=== PATIENT | female | born 1960 | race Caucasian/White ===

== ENCOUNTER 2016-09-11 13:56 | Observation (INO) | payer MEDICAID ==
[~2016-09-11] VITALS: Ht 172.7 cm; Wt 86.1 kg
[~2016-09-11 13:56] MED LIST: ALPRAZOLAM0.5 M2 PO; ANTIVERT 25MG25 MG PO; ASPIRIN 32325 MG/TA1 PO; ASPIRIN 32325 MG/TAB PO; ASPIRIN E.C. 8181 MG PO; ATIVAN 0.50.5 MG/TAB PO; CELEXA 20MG20 MG/TAB PO; COREG12.5 MG PO; COREG6.25 MG PO; DOXYCYCLINE 10100 MG PO; FLEXERIL 1010 MG/TAB PO; FOLIC ACID1 MG PO; IBUPROFEN MODE200 MG PO; LABETALOL100 MG PO; LASIX20 MG PO; LISINOPRIL10 MG PO; LOPRESSOR 225 MG/TAB PO; LORTAB 5/500 501 TAB PO; NAPROSYN500 MG PO; NASACORT A55 MCG/ACT NS; NATURE'S BLEND F1 MG PO; NITROSTAT0.4 MG SL; NITROSTAT0.4 MG/TAB SL; NORMODYNE100 MG PO; PLAVIX 75MG TAB75 MG PO; PRAVACHOL10 MG PO; PRINIVIL10 MG PO; PROVENTIL0.09 MG/A1 IH; THIAMINE HCL100 MG PO; THIAMINE-100100 MG PO; TIAZAC180 MG PO; TYLENOL 325MG325 MG PO; UNABLE; VENTOLIN0.09 MG IH; WELLBUTRIN SR150 M1 PO; XANAX 0.5MG0.5 MG PO; ZANTAC 150MG T150 MG PO; ZOCOR 10MG10 MG PO
[2016-09-11 15:07] LABS: BASO % 0.5 % (0.0-2.0); EOS # 0.1 (0.0-0.7); EOS % 3.2 % (0-4.0); GRAN # 2.1 (1.4-6.5); GRAN % 47.7 % (42.2-75.2); HEMATOCRIT 39.1 % (37.0-47.0); HEMOGLOBIN 12.9 g/dl (12.5-16.0); LYMPH # 1.8 (1.2-3.4); LYMPH % 40.5 % (20.0-51.0); MEAN CELL VOLUME 94 fl (80.0-100.0); MEAN CORPUSCULAR HEMOGLOBIN 31 pg (27.0-31.0); MEAN CORPUSCULAR HGB CONC 33 g/dl (33.0-37.0); MONO # 0.4 (0.1-0.6); MONO % 8.1 % (1.7-9.3); PLATELET COUNT 247 K/mm3 (130-400); RED BLOOD COUNT 4.17 M/mm3 (4.10-5.30); WHITE BLOOD COUNT 4.4 K/mm3 (4.8-10.8)
[2016-09-11 15:13] LABS: PROTHROMBIN TIME 11.6 SECONDS (9.7-12.8)
[2016-09-11 15:16] LABS: PARTIAL THROMBOPLASTIN TIME 31.2 SECONDS (26.0-37.0)
[2016-09-11 15:19] LABS: ALANINE AMINOTRANSFERASE 35 U/L (9-52); ALKALINE PHOSPHATASE 99 U/L (50-136); ANION GAP 11 mmol/L (7-16); BILIRUBIN,TOTAL 0.5 mg/dL (0.0-1.0); BLOOD UREA NITROGEN 20 mg/dL (7-17); CARBON DIOXIDE 24 mmol/L (22-30); CHLORIDE 104 mmol/L (98-107); GLUCOSE 100 mg/dL (74-106); LIPASE 30 U/L (23-300); POTASSIUM 3.8 mmol/L (3.4-5.0); SODIUM 139 mmol/L (137-145); TOTAL PROTEIN 7.3 gm/dL (6.4-8.2)
[2016-09-11 15:30] LABS: B-TYPE NATRIURETIC PEPTIDE 1050 pg/mL (0-125)
[2016-09-11 15:32] LABS: TROPONIN-I < 0.012 ng/mL (0.000-0.034)
[2016-09-11] MEDS ORDERED: ASPIRIN 32325 MG/TAB PO (15:45)
[2016-09-11] MEDS ORDERED: TIAZAC240 MG PO (15:47)
[2016-09-11] MEDS ORDERED: [UNRECOGNIZED DRUG - OTHER] INH (15:50)
[2016-09-11 17:54] VITALS: BP 147/75; PULSE 68; TEMP 98.4
[2016-09-11 19:18] LABS: PARTIAL THROMBOPLASTIN TIME 32.5 SECONDS (26.0-37.0)
[2016-09-11 19:37] VITALS: BP 119/63; PULSE 71; TEMP 97.3
[2016-09-11 23:53] VITALS: BP 110/59; PULSE 67; TEMP 98.1
[2016-09-12] VITALS (18 sets, daily range): BP systolic 99–141; BP diastolic 50–86; PULSE 56–79; TEMP 97.7–98.8
[2016-09-12 08:18] LABS: BASO % 0.4 % (0.0-2.0); EOS # 0.2 (0.0-0.7); EOS % 3.4 % (0-4.0); GRAN # 2.8 (1.4-6.5); GRAN % 58.1 % (42.2-75.2); LYMPH # 1.5 (1.2-3.4); LYMPH % 30.5 % (20.0-51.0); MEAN CELL VOLUME 96 fl (80.0-100.0); MEAN CORPUSCULAR HEMOGLOBIN 31 pg (27.0-31.0); MEAN CORPUSCULAR HGB CONC 33 g/dl (33.0-37.0); MEAN PLATELET VOLUME 8.8 fl (7.4-10.4); MONO # 0.4 (0.1-0.6); MONO % 7.4 % (1.7-9.3); PLATELET COUNT 244 K/mm3 (130-400); RED BLOOD COUNT 4.19 M/mm3 (4.10-5.30); REDCELL DISTRIBUTION WIDTH-CV 13.1 % (11.5-14.5); WHITE BLOOD COUNT 4.8 K/mm3 (4.8-10.8)
[2016-09-12 08:43] LABS: ANION GAP 8 mmol/L (7-16); BLOOD UREA NITROGEN 15 mg/dL (7-17); CALCIUM 8.9 mg/dL (8.4-10.2); CARBON DIOXIDE 28 mmol/L (22-30); CHLORIDE 103 mmol/L (98-107); CREATININE, serum 0.78 mg/dL (0.52-1.25); GLUCOSE 99 mg/dL (74-106); POTASSIUM 4.2 mmol/L (3.4-5.0); SODIUM 139 mmol/L (137-145)
[2016-09-12 08:56] LABS: TROPONIN-I < 0.012 ng/mL (0.000-0.034)
[2016-09-12 12:47] LABS: INR 1.1 (0.8-3.0); PROTHROMBIN TIME 11.8 SECONDS (9.7-12.8)
[2016-09-12 12:49] LABS: PARTIAL THROMBOPLASTIN TIME 32.1 SECONDS (26.0-37.0)
[2016-09-13 00:02] VITALS: BP 134/61; PULSE 73; TEMP 98.3
[2016-09-13 00:03] VITALS: BP 134/61; PULSE 73; TEMP 98.3
[2016-09-13 04:53] VITALS: BP 125/77; PULSE 77; TEMP 98.2
[2016-09-13 04:55] VITALS: BP 125/77; PULSE 77; TEMP 98.2
[2016-09-13 07:22] LABS: BASO % 0.4 % (0.0-2.0); EOS # 0.2 (0.0-0.7); EOS % 2.9 % (0-4.0); GRAN # 3.1 (1.4-6.5); GRAN % 55.7 % (42.2-75.2); HEMOGLOBIN 12.9 g/dl (12.5-16.0); LYMPH # 1.8 (1.2-3.4); MEAN CELL VOLUME 95 fl (80.0-100.0); MEAN CORPUSCULAR HEMOGLOBIN 31 pg (27.0-31.0); MEAN CORPUSCULAR HGB CONC 32 g/dl (33.0-37.0); MEAN PLATELET VOLUME 8.8 fl (7.4-10.4); MONO # 0.4 (0.1-0.6); MONO % 7.8 % (1.7-9.3); PLATELET COUNT 261 K/mm3 (130-400); REDCELL DISTRIBUTION WIDTH-CV 13.1 % (11.5-14.5); WHITE BLOOD COUNT 5.5 K/mm3 (4.8-10.8)
[2016-09-13 07:29] LABS: CALCIUM 9.1 mg/dL (8.4-10.2); CREATININE, serum 0.76 mg/dL (0.52-1.25); POTASSIUM 4.5 mmol/L (3.4-5.0)
[2016-09-13 07:41] VITALS: BP 121/64; PULSE 78; TEMP 98
[2016-09-13] MEDS ORDERED: PROTONIX 40MG T40 MG PO (09:37)
[2016-09-13 12:01] VITALS: BP 115/70; PULSE 71; TEMP 97.7
[2016-09-13] MEDS ORDERED: VENTOLIN0.09 MG IH ×2 (12:33)
== END 2016-09-13 12:45 | disposition home or self-care (01) ==
LOC: COL.ER 13:56 → MEDICAL 15:50
PROVIDERS: Emergency Medicine; Internal Medicine; Internal Medicine Cardiovascular Disease
DX: I20.0 Unstable angina (principal); I10 Essential (primary) hypertension; K21.9 Gastro-esophageal reflux disease without esophagitis; J44.9 Chronic obstructive pulmonary disease, unspecified; F17.210 Nicotine dependence, cigarettes, uncomplicated
CPT/HCPCS: 99223-AI; 99232-AI; C1769; C1887; C1894; G0378; J1644; J2250; J2270; J2405; J3010; J7030; Q9967

== ENCOUNTER 2017-01-14 07:26 | Emergency (ER) | payer MEDICAID ==
[~2017-01-14] VITALS: Ht 172.7 cm; Wt 72.7 kg
[~2017-01-14 07:26] MED LIST changes: +PROTONIX 40MG T40 MG PO; +TIAZAC240 MG PO; +[UNRECOGNIZED DRUG - OTHER] INH
[2017-01-14 07:30] VITALS: TEMP 99.2
[2017-01-14 08:16] LABS: BASO # 0.1 (0.0-0.2); BASO % 0.3 % (0.0-2.0); EOS # 0.1 (0.0-0.7); EOS % 0.6 % (0-4.0); GRAN # 11.9 (1.4-6.5); HEMATOCRIT 42.8 % (37.0-47.0); HEMOGLOBIN 13.9 g/dl (12.5-16.0); LYMPH # 2.1 (1.2-3.4); LYMPH % 13.7 % (20.0-51.0); MEAN CELL VOLUME 95 fl (80.0-100.0); MEAN CORPUSCULAR HEMOGLOBIN 31 pg (27.0-31.0); MEAN CORPUSCULAR HGB CONC 33 g/dl (33.0-37.0); MEAN PLATELET VOLUME 8.8 fl (7.4-10.4); MONO # 1.2 (0.1-0.6); MONO % 8.1 % (1.7-9.3); PLATELET COUNT 243 K/mm3 (130-400); RED BLOOD COUNT 4.51 M/mm3 (4.10-5.30); WHITE BLOOD COUNT 15.4 K/mm3 (4.8-10.8)
[2017-01-14 08:35] LABS: ADJUSTED CALCIUM 8.8 mg/dL (8.4-10.2); ALANINE AMINOTRANSFERASE 17 U/L (9-52); ALBUMIN 4.2 gm/dL (3.5-5.0); ALKALINE PHOSPHATASE 112 U/L (50-136); ANION GAP 14 mmol/L (7-16); BLOOD UREA NITROGEN 18 mg/dL (7-17); CARBON DIOXIDE 26 mmol/L (22-30); CHLORIDE 96 mmol/L (98-107); CREATININE, serum 1.08 mg/dL (0.52-1.25); GLUCOSE 113 mg/dL (74-106); POTASSIUM 4.2 mmol/L (3.4-5.0); SODIUM 135 mmol/L (137-145); TOTAL PROTEIN 7.8 gm/dL (6.4-8.2)
[2017-01-14 08:41] LABS: B-TYPE NATRIURETIC PEPTIDE 1800 pg/mL (0-125)
[2017-01-14 09:23] LABS: TROPONIN-I < 0.012 ng/mL (0.000-0.034)
[2017-01-14] MEDS ORDERED: CEPHALEXIN500 M1 PO (09:45)
[2017-01-14 10:05] VITALS: BP 106/70; PULSE 86
== END 2017-01-14 10:16 | disposition home or self-care (01) ==
LOC: COL.ER 07:26
PROVIDERS: Nurse Practitioner
DX: J02.0 Streptococcal pharyngitis (principal); F41.9 Anxiety disorder, unspecified; M54.30 Sciatica, unspecified side; I25.2 Old myocardial infarction; J44.9 Chronic obstructive pulmonary disease, unspecified; F17.210 Nicotine dependence, cigarettes, uncomplicated; R53.1 Weakness; R79.89 Other specified abnormal findings of blood chemistry; I25.10 Atherosclerotic heart disease of native coronary artery without angina pectoris; I11.0 Hypertensive heart disease with heart failure; I50.9 Heart failure, unspecified; K21.9 Gastro-esophageal reflux disease without esophagitis; M19.90 Unspecified osteoarthritis, unspecified site
CPT/HCPCS: J1885; J7030

== ENCOUNTER → 2017-05-15 | Outpatient (CLI) | payer MEDICAID ==
[~2017-05-15] MED LIST changes: +CEPHALEXIN500 M1 PO
== END ==
LOC: COL.PUL 13:00
DX: Z01.89 Encounter for other specified special examinations (principal)

== ENCOUNTER → 2017-06-09 | Outpatient (CLI) | payer MEDICAID | LOC: COL.PUL 10:59 | DX: R06.02 Shortness of breath (principal); F17.200 Nicotine dependence, unspecified, uncomplicated | CPT/HCPCS: J7674 ==

== ENCOUNTER 2017-09-04 16:06 | Emergency (ER) | payer MEDICAID ==
[~2017-09-04] VITALS: Ht 172.7 cm; Wt 63.6 kg
[2017-09-04 16:22] VITALS: BP 138/90; TEMP 98.1
[2017-09-04 18:28] LABS: INFLUENZA A NEGATIVE; INFLUENZA B NEGATIVE
[2017-09-04 19:44] LABS: HEMATOCRIT 39.8 % (37.0-47.0); HEMOGLOBIN 12.9 g/dl (12.5-16.0); MEAN CELL VOLUME 93 fl (80.0-100.0); MEAN CORPUSCULAR HEMOGLOBIN 30 pg (27.0-31.0); MEAN CORPUSCULAR HGB CONC 32 g/dl (33.0-37.0); MEAN PLATELET VOLUME 9.4 fl (7.4-10.4); PLATELET COUNT 158 K/mm3 (130-400); RED BLOOD COUNT 4.29 M/mm3 (4.10-5.30); REDCELL DISTRIBUTION WIDTH-CV 13.7 % (11.5-14.5)
[2017-09-04 19:50] LABS: ALBUMIN 4.1 gm/dL (3.5-5.0); BILIRUBIN,TOTAL 0.4 mg/dL (0.0-1.0); CREATININE, serum 0.75 mg/dL (0.52-1.25); POTASSIUM 4.1 mmol/L (3.4-5.0); TOTAL PROTEIN 7.2 gm/dL (6.4-8.2)
[2017-09-04 19:56] LABS: BAND 14 % (0-10); EOSINOPHIL 2 % (0-4); NEUTROPHILS 30 % (42.0-75.2); PLATELET ESTIMATE NORMAL (NORMAL)
[2017-09-04 19:57] LABS: LYMPHOCYTE 49 % (20.0-51.0)
[2017-09-04] MEDS ORDERED: ZOFRAN ODT4 MG PO (20:16)
[2017-09-04 20:34] VITALS: PULSE 76
== END 2017-09-04 20:34 | disposition home or self-care (01) ==
LOC: COL.ER 16:06
PROVIDERS: Emergency Medicine
DX: B34.9 Viral infection, unspecified (principal); I25.2 Old myocardial infarction; I10 Essential (primary) hypertension; J44.9 Chronic obstructive pulmonary disease, unspecified; F41.9 Anxiety disorder, unspecified; F17.210 Nicotine dependence, cigarettes, uncomplicated; Z90.89 Acquired absence of other organs; Z79.82 Long term (current) use of aspirin
CPT/HCPCS: J2405; J7040

== ENCOUNTER → 2017-10-03 | Outpatient (CLI) | payer MEDICAID ==
[~2017-10-03] MED LIST changes: +ZOFRAN ODT4 MG PO
== END ==
LOC: COL.RAD 13:09
DX: M47.816 Spondylosis without myelopathy or radiculopathy, lumbar region (principal); M48.061 Spinal stenosis, lumbar region without neurogenic claudication; M43.16 Spondylolisthesis, lumbar region; M54.42 Lumbago with sciatica, left side

== ENCOUNTER → 2017-10-27 | Outpatient (CLI) | payer MEDICAID | LOC: COL.RAD 16:26 | DX: M43.16 Spondylolisthesis, lumbar region (principal); M54.42 Lumbago with sciatica, left side ==

== ENCOUNTER 2018-05-08 16:15 | Outpatient (RCR) | payer MEDICAID | END 2018-06-03 16:12 | disposition home or self-care (01) | LOC: WSPT 16:15 | DX: M43.16 Spondylolisthesis, lumbar region (principal); M48.062 Spinal stenosis, lumbar region with neurogenic claudication; M71.38 Other bursal cyst, other site ==

== ENCOUNTER 2018-11-04 21:22 | Emergency (ER) | payer MEDICAID ==
[~2018-11-04] VITALS: Ht 172.7 cm; Wt 77.3 kg
[~2018-11-04 21:22] MED LIST changes: -PRINIVIL10 MG PO; +PRINIVIL40 MG PO
[2018-11-04 21:23] VITALS: BP 156/89; TEMP 97
[2018-11-04] MEDS ORDERED: ACULAR 5 ML5 ML OU (22:10)
[2018-11-04 22:30] VITALS: PULSE 87
== END 2018-11-04 22:30 | disposition home or self-care (01) ==
LOC: COL.ER 21:22
DX: S05.01XA Injury of conjunctiva and corneal abrasion without foreign body, right eye, initial encounter (principal); F41.9 Anxiety disorder, unspecified; F32.9 Major depressive disorder, single episode, unspecified; I25.10 Atherosclerotic heart disease of native coronary artery without angina pectoris; I10 Essential (primary) hypertension; F17.210 Nicotine dependence, cigarettes, uncomplicated; Z79.02 Long term (current) use of antithrombotics/antiplatelets; Z79.82 Long term (current) use of aspirin; X58.XXXA Exposure to other specified factors, initial encounter

== ENCOUNTER 2019-02-28 08:17 | Observation (INO) | payer MEDICAID ==
[~2019-02-28] VITALS: Ht 172.7 cm; Wt 94.8 kg
[~2019-02-28 08:17] MED LIST changes: +ACULAR 5 ML5 ML OU
[2019-02-28] MEDS ORDERED: LASIX 20MG TABL20 MG (08:24)
[2019-02-28] MEDS ORDERED: ULTRAM 50MG TAB50 MG PO (08:25)
[2019-02-28 08:41] LABS: BASO % 0.3 % (0.0-2.0); EOS # 0.2 (0.0-0.7); GRAN # 3.4 (1.4-6.5); GRAN % 56.4 % (42.2-75.2); HEMOGLOBIN 12.2 g/dl (12.5-16.0); LYMPH % 32.9 % (20.0-51.0); MEAN CELL VOLUME 97 fl (80.0-100.0); MEAN CORPUSCULAR HEMOGLOBIN 31 pg (27.0-31.0); MEAN CORPUSCULAR HGB CONC 32 g/dl (33.0-37.0); MONO # 0.4 (0.1-0.6); MONO % 7.2 % (1.7-9.3); PLATELET COUNT 207 K/mm3 (130-400); RED BLOOD COUNT 3.91 M/mm3 (4.10-5.30); REDCELL DISTRIBUTION WIDTH-CV 13.8 % (11.5-14.5)
[2019-02-28 09:13] LABS: ALANINE AMINOTRANSFERASE 39 U/L (9-52); ALBUMIN 3.7 gm/dL (3.5-5.0); ALKALINE PHOSPHATASE 103 U/L (50-136); ANION GAP 7 mmol/L (7-16); AST,SGOT 44 U/L (15-37); BILIRUBIN,TOTAL 0.3 mg/dL (0.0-1.0); BLOOD UREA NITROGEN 19 mg/dL (7-17); CALCIUM 8.9 mg/dL (8.4-10.2); CARBON DIOXIDE 29 mmol/L (22-30); CHLORIDE 105 mmol/L (98-107); CREATININE, serum 0.75 (0.52-1.25); GLUCOSE 99 mg/dL (74-106); POTASSIUM 4.4 mmol/L (3.4-5.0); SODIUM 141 mmol/L (137-145); TOTAL PROTEIN 6.6 gm/dL (6.4-8.2)
[2019-02-28 09:30] LABS: TROPONIN-I < 0.012 ng/mL (0.000-0.035)
[2019-02-28 11:08] LABS: COLLECTION METHOD CLEAN CATCH
[2019-02-28 11:22] LABS: PH 7 (5-8); SQUAMOUS EPITHELIAL 0-2 /hpf; URINE APPEARANCE Clear; URINE BACTERIA None Seen /hpf; URINE BILIRUBIN Negative (NEGATIVE); URINE BLOOD Negative (NEGATIVE); URINE COLOR Straw; URINE GLUCOSE Negative (NEGATIVE); URINE KETONE Negative (NEGATIVE); URINE LEUKOCYTE ESTERASE Negative (NEGATIVE); URINE NITRATE Negative (NEGATIVE); URINE PROTEIN(semi-quant) Negative (NEGATIVE); URINE RBC 0-2 /hpf; URINE UROBILINOGEN Negative (NEGATIVE)
--- NOTE | 2019-02-28 12:45 | NUR ---
PT ADMITTED TO MEDICAL FLOOR AT THIS TIME.
[2019-02-28 12:56] VITALS: BP 165/95; PULSE 96; TEMP 98
[2019-02-28] MEDS ORDERED: VENTAVIS IH (13:40)
[2019-02-28] MEDS ORDERED: ANORO IH (13:42)
[2019-02-28] MEDS ORDERED: LIPITOR 40MG TA40 MG PO (13:43)
[2019-02-28 16:04] VITALS: BP 153/85; PULSE 98; TEMP 98.3
--- NOTE | 2019-02-28 18:00 | NUR ---
PT RECIEVED IV LEVAQUIN WITHOUT ISSUE. ADMINISERED XANAX THIS EVENING. PT STATED THAT SHE WAS HAVING SOME CHEST PAIN. VITALS TAKEN, AND TELE CHECKED, BOTH WNL. WANTED TO SEE IF CHEST PAIN WAS ANXIETY INDUCED PRIOR TO GETTING ORDERS FOR OTHER PRNS. NO OTHER COMPLAINTS OR ISSUES VOICED THIS SHIFT.
[2019-02-28 18:37] VITALS: BP 148/79; PULSE 96
[2019-02-28 19:01] VITALS: BP 161/91; PULSE 93; TEMP 98.4
--- NOTE | 2019-02-28 19:32 | NUR ---
REPORT RECEIVED FROM ZOEY BORJA. PT RESTING IN BED AND C/O CONSTANT CHEST PAIN. PT HAS CHRONIC ANXIETY AND SHE'S NOT SURE THIS CHEST PAIN IS FROM ANXIETY. PT JUST TOOK XANAX AND WILL SEE HOW THIS MED HELPS. NO OTHER CONCERN AT THIS TIME. CALL LIGHT IN REACH. TELE SHOWS NO ABNORMAL HEART ACTIVITIES SO FAR.
--- NOTE | 2019-02-28 21:18 | NUR ---
Pt resting in bed comfortably and denied pain. Pt states that her chest pain might have been her anxiety. Cell phone patient account representative provided to pt while pt's hospital stay to charge her phone. Pt voiced gratitude. Call light in reach.
--- NOTE | 2019-02-28 22:01 | NUR ---
PT RESTING IN BED COMFORTABLY AND TALKING ON HER CELL PHONE. NO CONCERN. CALL LIGHT IN REACH.
[2019-02-28 23:06] VITALS: BP 134/68; PULSE 90; TEMP 98.9
--- NOTE | 2019-02-28 23:29 | NUR ---
PT AMBULATED IN A HALLWAY TO GET SOMETHING OUT OF VENDING MACHINE AND BACK TO BED SLEEPING SOUNDLY NOW. CALL LIGHT IN REACH.
--- NOTE | 2019-03-01 00:43 | NUR ---
REPORT GIVEN TO ZOEY CARRION.
--- NOTE | 2019-03-01 01:32 | NUR ---
PT SLEEPING/RESTING WITH RESP EVEN AND UNLABORED. ALSO, NO S/S OF PAIN OR DISCOMFORT NOTED. CALL LIGHT WITHIN REACH.
[2019-03-01 03:01] VITALS: BP 139/58; PULSE 84; TEMP 97.5
--- NOTE | 2019-03-01 07:31 | NUR ---
UNEVENTFUL NIGHT, PT SLEPT WELL AND NO C/O OF PAIN OR DISCOMFORT. RESP EVEN AND UNLABORED. CALL LIGHT WITHIN REACH.
[2019-03-01 07:49] VITALS: BP 146/71; PULSE 88; TEMP 97.5
--- NOTE | 2019-03-01 08:17 | NUR ---
Patient assessment complete and charted. Patient sitting in bed eating breakfast. Pt on room air. RAC INT IV patent. C/O dizziness yesterday when she "walked to vending machine", some nausea and chronic lower back pain. Pt also states she is "having some anxiety". Pt was a little fidgety, asking for Xanax. Denies other needs at this time.
[2019-03-01] MEDS ORDERED: VENTOLIN0.09 MG IH (09:02)
[2019-03-01] MEDS ORDERED: LEVAQUIN 750MG750 M1 PO (09:02)
[2019-03-01 09:53] VITALS: BP 133/67; PULSE 88
[2019-03-01 09:55] VITALS: BP 130/71; PULSE 90
[2019-03-01 09:57] VITALS: BP 150/74; PULSE 98
--- NOTE | 2019-03-01 10:02 | NUR ---
Orthostatic BPs obtained per order. GURVINDER Yip. Patient administered PRN Xanax per OCT. Denies other needs at this time.
--- NOTE | 2019-03-01 10:56 | NUR ---
Initial visit; Patient thanked Labor Economist for looking in on her and letting her know of the availability of spiritual care at our hospital.
[2019-03-01 12:52] VITALS: BP 143/77; PULSE 81; TEMP 98
--- NOTE | 2019-03-01 13:04 | NUR ---
SW attended clincal rounds. Patient lives independently at home. Patient's PCP is Dr Modi and she obtains prescriptions from [facility]. Patient is independent with all ADLs. Patient will discharge later today.
--- NOTE | 2019-03-01 13:06 | NUR ---
Patient awaiting discharge today once Echo and Carotid imaging completed. This nurse contacted Ansley with US at [facility] to make sure she saw the order. Still awaiting tests.
--- NOTE | 2019-03-01 15:00 | NUR ---
Patient discharged. Discharge instructions discussed, all questions answered. Pt verbalizes understanding. No other questions at this time. INT RAC IV discontinued with catheter tip intact, no complications. Pt escorted out via wheelchair by this nurse. Rode home with friend.
== END 2019-03-01 15:00 | disposition home or self-care (01) ==
LOC: COL.ER 08:17 → MEDICAL 10:33
PROVIDERS: Family Medicine; ADMIT Family Medicine
DX: J18.8 Other pneumonia, unspecified organism (principal); F41.9 Anxiety disorder, unspecified; I25.10 Atherosclerotic heart disease of native coronary artery without angina pectoris; I25.2 Old myocardial infarction; Z95.5 Presence of coronary angioplasty implant and graft; J44.9 Chronic obstructive pulmonary disease, unspecified; J96.11 Chronic respiratory failure with hypoxia; R55 Syncope and collapse; I50.22 Chronic systolic (congestive) heart failure; K21.9 Gastro-esophageal reflux disease without esophagitis; I10 Essential (primary) hypertension; F19.11 Other psychoactive substance abuse, in remission; Z79.02 Long term (current) use of antithrombotics/antiplatelets; Z79.82 Long term (current) use of aspirin; Z99.81 Dependence on supplemental oxygen; F17.210 Nicotine dependence, cigarettes, uncomplicated; Z88.0 Allergy status to penicillin; Z88.1 Allergy status to other antibiotic agents; I08.1 Rheumatic disorders of both mitral and tricuspid valves
CPT/HCPCS: 99222-AI; 99233-AI; 99239; A4216; G0378; J0696; J1200; J1940; J1956; J2060; J2930; J7030

== ENCOUNTER 2019-07-20 12:51 | Emergency (ER) | payer MEDICAID ==
[~2019-07-20] VITALS: Ht 172.7 cm; Wt 79.5 kg
[~2019-07-20 12:51] MED LIST changes: +ANORO IH; +LASIX 20MG TABL20 MG; +LEVAQUIN 750MG750 M1 PO; +LIPITOR 40MG TA40 MG PO; +ULTRAM 50MG TAB50 MG PO; +VENTAVIS IH
[2019-07-20 13:06] VITALS: BP 168/98; TEMP 97.7
[2019-07-20] MEDS ORDERED: ILOTYCIN5 MG/GM OP (14:24)
[2019-07-20 14:51] VITALS: PULSE 83
== END 2019-07-20 14:50 | disposition home or self-care (01) ==
LOC: COL.ER 12:51
DX: H57.89 Other specified disorders of eye and adnexa (principal); I25.2 Old myocardial infarction; F41.9 Anxiety disorder, unspecified; F17.210 Nicotine dependence, cigarettes, uncomplicated; Z79.02 Long term (current) use of antithrombotics/antiplatelets; Z79.82 Long term (current) use of aspirin

== ENCOUNTER → 2019-11-18 | Outpatient (CLI) | payer MEDICAID ==
[~2019-11-18] MED LIST changes: +ILOTYCIN5 MG/GM OP
== END ==
LOC: COL.RAD 07:11
DX: G44.51 Hemicrania continua (principal)

== ENCOUNTER 2020-01-07 22:55 | Emergency (ER) | payer MEDICAID ==
[~2020-01-07] VITALS: Ht 172.7 cm; Wt 84.1 kg
[2020-01-07 22:58] VITALS: TEMP 97.6
[2020-01-08 00:15] LABS: BASO % 0.3 % (0.0-2.0); EOS # 0.2 (0.0-0.7); GRAN # 3.6 (1.4-6.5); GRAN % 53.2 % (42.2-75.2); HEMATOCRIT 36.8 % (37.0-47.0); HEMOGLOBIN 11.9 g/dl (12.5-16.0); LYMPH # 2.4 (1.2-3.4); MEAN CELL VOLUME 97 fl (80.0-100.0); MEAN CORPUSCULAR HEMOGLOBIN 31 pg (27.0-31.0); MEAN CORPUSCULAR HGB CONC 32 g/dl (33.0-37.0); MEAN PLATELET VOLUME 8.9 fl (7.4-10.4); MONO # 0.5 (0.1-0.6); MONO % 7.4 % (1.7-9.3); PLATELET COUNT 241 K/mm3 (130-400); RED BLOOD COUNT 3.79 M/mm3 (4.10-5.30); REDCELL DISTRIBUTION WIDTH-CV 13.2 % (11.5-14.5)
[2020-01-08 00:20] LABS: INR 1.1 (0.8-3.0); PROTHROMBIN TIME 12.4 SECONDS (9.7-12.8)
[2020-01-08 00:23] LABS: ALBUMIN 3.9 gm/dL (3.5-5.0); BILIRUBIN,TOTAL 0.3 mg/dL (0.0-1.0); CALCIUM 9.2 mg/dL (8.4-10.2); CREATININE, serum 0.83 (0.52-1.25); POTASSIUM 3.7 mmol/L (3.4-5.0); TOTAL PROTEIN 6.9 gm/dL (6.4-8.2)
[2020-01-08 00:34] LABS: TROPONIN-I 0.02 ng/mL (0.000-0.035)
[2020-01-08 06:00] VITALS: BP 109/56; PULSE 63
== END 2020-01-08 06:19 | disposition home or self-care (01) ==
LOC: COL.ER 22:55
PROVIDERS: Emergency Medicine
DX: R07.89 Other chest pain (principal); K21.9 Gastro-esophageal reflux disease without esophagitis; I25.10 Atherosclerotic heart disease of native coronary artery without angina pectoris; I50.9 Heart failure, unspecified; F17.210 Nicotine dependence, cigarettes, uncomplicated; Z95.5 Presence of coronary angioplasty implant and graft; Z79.02 Long term (current) use of antithrombotics/antiplatelets; Z90.89 Acquired absence of other organs; Z79.82 Long term (current) use of aspirin

== ENCOUNTER 2020-05-20 01:08 | Emergency (ER) | payer MEDICAID ==
[~2020-05-20] VITALS: Ht 172.7 cm; Wt 109.1 kg
[2020-05-20 01:33] LABS: BASO % 0.6 % (0.0-2.0); EOS # 0.2 (0.0-0.7); EOS % 3.5 % (0-4.0); GRAN # 3.4 (1.4-6.5); GRAN % 50.2 % (42.2-75.2); HEMOGLOBIN 11.7 g/dl (12.5-16.0); LYMPH # 2.6 (1.2-3.4); LYMPH % 38.3 % (20.0-51.0); MEAN CELL VOLUME 96 fl (80.0-100.0); MEAN CORPUSCULAR HEMOGLOBIN 31 pg (27.0-31.0); MEAN CORPUSCULAR HGB CONC 32 g/dl (33.0-37.0); MONO # 0.5 (0.1-0.6); MONO % 7.2 % (1.7-9.3); PLATELET COUNT 213 K/mm3 (130-400); RED BLOOD COUNT 3.79 M/mm3 (4.10-5.30); REDCELL DISTRIBUTION WIDTH-CV 13.3 % (11.5-14.5)
[2020-05-20 01:36] LABS: HEMATOCRIT 36.3 % (37.0-47.0)
[2020-05-20 01:44] LABS: INR 1.1 (0.8-3.0); PROTHROMBIN TIME 11.8 SECONDS (9.7-12.8)
[2020-05-20 01:47] LABS: ALBUMIN 4.1 gm/dL (3.5-5.0); BILIRUBIN,TOTAL 0.3 mg/dL (0.0-1.0); CALCIUM 8.8 mg/dL (8.4-10.2); CREATININE, serum 1.03 (0.52-1.25); PARTIAL THROMBOPLASTIN TIME 31.6 SECONDS (26.0-37.0); POTASSIUM 3.7 mmol/L (3.4-5.0); TOTAL PROTEIN 6.8 gm/dL (6.4-8.2)
[2020-05-20 01:50] LABS: D-DIMER < 200.00 ng/mLDDu (200-230)
[2020-05-20 02:00] LABS: TROPONIN-I 0.016 ng/mL (0.000-0.035)
[2020-05-20] MEDS ORDERED: PEPCID 20MG TAB20 MG PO (04:38)
[2020-05-20 04:53] VITALS: BP 122/77; PULSE 78; TEMP 98.1
== END 2020-05-20 05:12 | disposition home or self-care (01) ==
LOC: COL.ER 01:08
PROVIDERS: Emergency Medicine
DX: R06.00 Dyspnea, unspecified (principal); R10.9 Unspecified abdominal pain; I25.10 Atherosclerotic heart disease of native coronary artery without angina pectoris; I50.9 Heart failure, unspecified; K21.9 Gastro-esophageal reflux disease without esophagitis; Z79.02 Long term (current) use of antithrombotics/antiplatelets; Z79.82 Long term (current) use of aspirin
CPT/HCPCS: J2270; J2405

== ENCOUNTER 2020-07-18 11:06 | Emergency (ER) | payer MEDICAID ==
[~2020-07-18] VITALS: Ht 172.7 cm; Wt 84.1 kg
[~2020-07-18 11:06] MED LIST changes: +PEPCID 20MG TAB20 MG PO
[2020-07-18 11:13] VITALS: TEMP 97.7
[2020-07-18 12:49] LABS: BASO % 0.5 % (0.0-2.0); EOS # 0.2 (0.0-0.7); EOS % 3.3 % (0-4.0); GRAN # 3.1 (1.4-6.5); GRAN % 54.4 % (42.2-75.2); HEMATOCRIT 41.3 % (37.0-47.0); HEMOGLOBIN 13.5 g/dl (12.5-16.0); LYMPH % 34.4 % (20.0-51.0); MEAN CELL VOLUME 95 fl (80.0-100.0); MEAN CORPUSCULAR HEMOGLOBIN 31 pg (27.0-31.0); MEAN CORPUSCULAR HGB CONC 33 g/dl (33.0-37.0); MEAN PLATELET VOLUME 9.2 fl (7.4-10.4); MONO # 0.4 (0.1-0.6); MONO % 7.2 % (1.7-9.3); PLATELET COUNT 245 K/mm3 (130-400); RED BLOOD COUNT 4.35 M/mm3 (4.10-5.30); REDCELL DISTRIBUTION WIDTH-CV 13.2 % (11.5-14.5)
[2020-07-18 12:55] LABS: ALBUMIN 4.1 gm/dL (3.5-5.0); BILIRUBIN,TOTAL 0.5 mg/dL (0.0-1.0); CALCIUM 9.3 mg/dL (8.4-10.2); CREATININE, serum 0.83 (0.52-1.25); POTASSIUM 4.4 mmol/L (3.4-5.0); TOTAL PROTEIN 6.9 gm/dL (6.4-8.2)
[2020-07-18 13:06] LABS: TROPONIN-I 0.013 ng/mL (0.000-0.035)
[2020-07-18] MEDS ORDERED: PREDNISONE20 MG PO (15:15)
[2020-07-18] MEDS ORDERED: ZITHROMAX Z PA250 MG PO (15:15)
[2020-07-18 15:29] VITALS: BP 137/81; PULSE 85
[2020-07-20] MEDS ORDERED: PROAIR HFA0.09 MG/AC IH (16:11)
== END 2020-07-18 15:30 | disposition home or self-care (01) ==
LOC: COL.ER 11:06
PROVIDERS: Family Medicine
DX: J20.9 Acute bronchitis, unspecified (principal); I25.10 Atherosclerotic heart disease of native coronary artery without angina pectoris; I25.2 Old myocardial infarction; F17.200 Nicotine dependence, unspecified, uncomplicated; Z98.61 Coronary angioplasty status; Z88.0 Allergy status to penicillin; Z88.8 Allergy status to other drugs, medicaments and biological substances; Z79.02 Long term (current) use of antithrombotics/antiplatelets; Z79.82 Long term (current) use of aspirin
CPT/HCPCS: J2930

== ENCOUNTER 2020-08-04 23:06 | Emergency (ER) | payer MEDICAID ==
[~2020-08-04] VITALS: Ht 172.7 cm; Wt 81.8 kg
[~2020-08-04 23:06] MED LIST changes: +PREDNISONE20 MG PO; +PROAIR HFA0.09 MG/AC IH; +ZITHROMAX Z PA250 MG PO
[2020-08-04 23:25] VITALS: BP 157/107; TEMP 98.3
[2020-08-05 00:30] LABS: BASO % 0.5 % (0.0-2.0); EOS # 0.2 (0.0-0.7); EOS % 2.3 % (0-4.0); GRAN # 4.6 (1.4-6.5); HEMOGLOBIN 11.4 g/dl (12.5-16.0); LYMPH # 2.3 (1.2-3.4); LYMPH % 28.8 % (20.0-51.0); MEAN CELL VOLUME 97 fl (80.0-100.0); MEAN CORPUSCULAR HEMOGLOBIN 31 pg (27.0-31.0); MEAN CORPUSCULAR HGB CONC 32 g/dl (33.0-37.0); MEAN PLATELET VOLUME 8.7 fl (7.4-10.4); MONO # 0.7 (0.1-0.6); MONO % 8.4 % (1.7-9.3); PLATELET COUNT 210 K/mm3 (130-400); RED BLOOD COUNT 3.68 M/mm3 (4.10-5.30); REDCELL DISTRIBUTION WIDTH-CV 13.8 % (11.5-14.5)
[2020-08-05 00:33] LABS: HEMATOCRIT 35.8 % (37.0-47.0)
[2020-08-05 00:45] LABS: ALBUMIN 3.6 gm/dL (3.5-5.0); BILIRUBIN,TOTAL 0.2 mg/dL (0.0-1.0); C-REACTIVE PROTEIN 1.6 mg/dL (0.0-0.9); CALCIUM 8.9 mg/dL (8.4-10.2); CREATININE, serum 0.81 (0.52-1.25); POTASSIUM 3.9 mmol/L (3.4-5.0); TOTAL PROTEIN 6.2 gm/dL (6.4-8.2)
[2020-08-05] MEDS ORDERED: PROTONIX 40MG T40 MG PO (01:48)
[2020-08-05] MEDS ORDERED: CARAFATE 1GM1 G PO (01:48)
[2020-08-05 02:00] VITALS: PULSE 94
== END 2020-08-05 02:03 | disposition home or self-care (01) ==
LOC: COL.ER 23:06
PROVIDERS: Emergency Medicine
DX: K29.70 Gastritis, unspecified, without bleeding (principal); J44.9 Chronic obstructive pulmonary disease, unspecified; I25.10 Atherosclerotic heart disease of native coronary artery without angina pectoris; I25.2 Old myocardial infarction; K21.9 Gastro-esophageal reflux disease without esophagitis; F41.9 Anxiety disorder, unspecified; F17.210 Nicotine dependence, cigarettes, uncomplicated; Z86.19 Personal history of other infectious and parasitic diseases; Z88.0 Allergy status to penicillin; Z88.8 Allergy status to other drugs, medicaments and biological substances; Z79.52 Long term (current) use of systemic steroids; Z79.82 Long term (current) use of aspirin
CPT/HCPCS: C9113; J2270; J2405

== ENCOUNTER → 2020-09-06 | Outpatient (CLI) | payer MEDICAID ==
[~2020-09-06] MED LIST changes: +CARAFATE 1GM1 G PO
[2020-09-06 12:28] LABS: ALBUMIN 4.4 gm/dL (3.5-5.0); BILIRUBIN,TOTAL 0.6 mg/dL (0.0-1.0); CALCIUM 9.6 mg/dL (8.4-10.2); CREATININE, serum 1.09 (0.52-1.25); POTASSIUM 4.3 mmol/L (3.4-5.0); TOTAL PROTEIN 7.5 gm/dL (6.4-8.2)
== END ==
LOC: COL.RAD 11:53
PROVIDERS: Physician Assistant
DX: I34.0 Nonrheumatic mitral (valve) insufficiency (principal); I51.7 Cardiomegaly

== ENCOUNTER 2020-10-18 06:29 | Inpatient (IN) | payer MEDICAID ==
[~2020-10-18] VITALS: Ht 167.6 cm; Wt 90.9 kg
[~2020-10-18 06:29] MED LIST changes: -LASIX 20MG TABL20 MG; +LASIX 20MG TABL20 MG PO
[2020-10-18 07:17] LABS: ARTERIAL BLD GAS O2 SATURATION 91.2 % (92-100); ARTERIAL BLD GAS TCO2 CT 23.3; ARTERIAL BLOOD GAS BASE EXCESS -4.6 (-2-2); ARTERIAL BLOOD GAS HCO3 21.9 meq/L (22-26); ARTERIAL BLOOD GAS PCO2 46.1 mmHg (35-45); ARTERIAL BLOOD GAS PO2 66.5 mmHg (80-100)
[2020-10-18 07:39] LABS: ALBUMIN 4.1 gm/dL (3.5-5.0); BILIRUBIN,TOTAL 0.3 mg/dL (0.0-1.0); C-REACTIVE PROTEIN 0.6 mg/dL (0.0-0.9); CALCIUM 8.6 mg/dL (8.4-10.2); CREATININE, serum 1.05 (0.52-1.25); POTASSIUM 3.7 mmol/L (3.4-5.0); TOTAL PROTEIN 6.9 gm/dL (6.4-8.2)
[2020-10-18 07:43] LABS: PARTIAL THROMBOPLASTIN TIME 26.5 SECONDS (26.0-37.0)
[2020-10-18 07:46] LABS: BASO % 0.4 % (0.0-2.0); EOS # 0.2 (0.0-0.7); EOS % 2.2 % (0-4.0); GRAN # 6.8 (1.4-6.5); GRAN % 74.5 % (42.2-75.2); HEMATOCRIT 42.2 % (37.0-47.0); HEMOGLOBIN 13.1 g/dl (12.5-16.0); LYMPH # 1.7 (1.2-3.4); LYMPH % 18.9 % (20.0-51.0); MEAN CELL VOLUME 100 fl (80.0-100.0); MEAN CORPUSCULAR HEMOGLOBIN 31 pg (27.0-31.0); MEAN CORPUSCULAR HGB CONC 31 g/dl (33.0-37.0); MEAN PLATELET VOLUME 9.1 fl (7.4-10.4); MONO # 0.3 (0.1-0.6); MONO % 3.6 % (1.7-9.3); PLATELET COUNT 262 K/mm3 (130-400); RED BLOOD COUNT 4.22 M/mm3 (4.10-5.30); REDCELL DISTRIBUTION WIDTH-CV 13.3 % (11.5-14.5)
[2020-10-18 07:48] LABS: TROPONIN-I 0.028 ng/mL (0.000-0.035)
[2020-10-18 08:05] LABS: MUCOUS Present /lpf; PH 7 (5-8); SQUAMOUS EPITHELIAL 0-2 /hpf; URINE APPEARANCE Clear; URINE BACTERIA None Seen /hpf; URINE BILIRUBIN Negative (NEGATIVE); URINE BLOOD Negative (NEGATIVE); URINE COLOR Yellow; URINE GLUCOSE Negative (NEGATIVE); URINE KETONE Negative (NEGATIVE); URINE LEUKOCYTE ESTERASE Negative (NEGATIVE); URINE NITRATE Negative (NEGATIVE); URINE PROTEIN(semi-quant) Negative (NEGATIVE); URINE RBC None Seen /hpf; URINE UROBILINOGEN Negative (NEGATIVE); URINE WBC 0-2 /hpf
[2020-10-18 08:16] LABS: TRICYCLIC ANTIDEPRESS URINE NEGATIVE
[2020-10-18 08:41] LABS: ERYTHROCYTE SEDIMENTATION RATE 7 mm/hr (0-30)
[2020-10-18 09:01] LABS: COLLECTION METHOD CATHETER
[2020-10-18] MEDS ORDERED: TRELEGY ELLIPT1 EACH IH (11:52)
[2020-10-18] MEDS ORDERED: ASPIRIN 81M81 MG/TA2 PO (11:53)
[2020-10-18] MEDS ORDERED: FLONASE NASAL S16 GM NS (11:54)
[2020-10-18] MEDS ORDERED: CARDIZEM120 MG PO (12:02)
[2020-10-18] MEDS ORDERED: ULTRAM 50MG TAB50 MG PO (12:03)
--- NOTE | 2020-10-18 12:09 | NUR ---
Pt admitted to medical unit rm [id number] from ED via cart, ambulates from cart to bed with steady gait. Pt reports headache 7 out of 10. Saline lock IV's to bilat AC's without s/s of complications. O2 in place at 2 L/min via NC, however pt c/o that the O2 is causing her headache, requesting to take off for now and re-evaluate her sats. No further needs reported. Call light in reach.
[2020-10-18 12:16] VITALS: BP 143/70; PULSE 91; TEMP 97.6
--- NOTE | 2020-10-18 13:32 | NUR ---
Pt agrees to receiving sched medications as ordered but requesting to leave once the antibiotic is complete. Pt states, "I hate it here. I want to go back home." This nurse tries to encourage pt to stay but pt is requesting AMA paperwork. Provider notified.
[2020-10-18] MEDS ORDERED: MEDROL 4MG DOSPA4 MG PO ×2 (14:04)
[2020-10-18] MEDS ORDERED: LEVAQUIN 5500 MG/TA1 PO ×2 (14:05)
--- NOTE | 2020-10-18 15:50 | NUR ---
Pt having intense INIGUEZ and bloating still after antibiotic complete, would like to stay now instead of leaving AMA. Provider notified.
[2020-10-18 17:00] VITALS: BP 164/96; PULSE 97; TEMP 98
[2020-10-18 19:16] VITALS: BP 135/76; PULSE 100; TEMP 97.9
--- NOTE | 2020-10-18 23:22 | NUR ---
2010- PT ALERT AND OX4. SETTING IN BED WATCHING TV. ASSESSMENT AND VITALS OBTAINED. PLAN OF CARE DISCUSSED. PT PLEASENT AND THANKFUL. DENIES SOA, DIZZY OR LIGHTHEADED. FELT HUNGRY, SNACKS PROVIDED. DENIES PAIN. DOES FEEL LIKE ABD SLIGHTLY BLOATED CHRONICALLY. IV INTACT AND FLUSHED. XANAX GIVEN FOR ANIEXTY, SLEEP. NEEDS MET.
[2020-10-18 23:57] VITALS: BP 151/83; PULSE 107; TEMP 97.9
[2020-10-19 04:11] VITALS: BP 140/75; PULSE 104; TEMP 98
--- NOTE | 2020-10-19 04:51 | NUR ---
PT SLEPT ALL NIGHT WITHOUT INCIDENT. DENIES CHEST PAIN, NEEDS MET.
[2020-10-19 06:43] LABS: BASO % 0.1 % (0.0-2.0); GRAN % 85.8 % (42.2-75.2); LYMPH # 0.9 (1.2-3.4); MEAN CORPUSCULAR HEMOGLOBIN 31 pg (27.0-31.0); MEAN CORPUSCULAR HGB CONC 33 g/dl (33.0-37.0); MEAN PLATELET VOLUME 9.5 fl (7.4-10.4); MONO # 0.5 (0.1-0.6); MONO % 4.8 % (1.7-9.3); PLATELET COUNT 287 K/mm3 (130-400); RED BLOOD COUNT 4.23 M/mm3 (4.10-5.30); REDCELL DISTRIBUTION WIDTH-CV 13.2 % (11.5-14.5)
[2020-10-19 06:57] LABS: MEAN CELL VOLUME 95 fl (80.0-100.0)
[2020-10-19 06:59] LABS: CALCIUM 9.4 mg/dL (8.4-10.2); CREATININE, serum 1.01 (0.52-1.25); MAGNESIUM 2.3 mg/dL (1.6-2.3); POTASSIUM 4.4 mmol/L (3.4-5.0)
[2020-10-19 07:01] LABS: TROPONIN-I 0.02 ng/mL (0.000-0.035)
--- NOTE | 2020-10-19 07:17 | NUR ---
Report with ZOEY Adame. Pt resting in bed with eyes closed, awakens briefly, denies needs at this time. Call light in reach.
[2020-10-19 08:06] VITALS: BP 136/63; PULSE 86; TEMP 97.6
--- NOTE | 2020-10-19 10:35 | NUR ---
Initial visit; Patient thanked Manager Product Marketing for looking in on her and offering God's blessings.
[2020-10-19 11:27] VITALS: BP 115/72; PULSE 91; TEMP 98.5
--- NOTE | 2020-10-19 13:55 | NUR ---
Primary nurse was assisted with [id number] patient care by [facility] [employer] student Amparo Camacho and [employer] [employer] [employer] instructor Tanna Milan RN-.
--- NOTE | 2020-10-19 14:51 | NUR ---
Ground Surveillance Systems Operator met with the patient to complete intake. The patient lives alone in [place]. The patient uses oxygen at night at 2L. The supplies are from [employer]. The patient's PCP is Dr. Modi ([place]) and patient receives medications from [facility] with no difficulties. The patient does not have advanced directives and was no interested in DPOA-HC form. The patient is not . She has two children, Kamila Santoyo and Marcos Knott #[phone]. They both live locally. The patient plans to return home at discharge and will find a ride from a friend. SW addressed the patient's drug use as she tested postive for methaphetamines, amphetamines and benzos. She declined treatment at this time. There are no additional needs.
[2020-10-19 16:17] VITALS: BP 135/80; PULSE 82; TEMP 97.7
--- NOTE | 2020-10-19 16:30 | NUR ---
Pt ambulating in hallway with steady gait.
[2020-10-19 20:34] VITALS: BP 147/88; PULSE 79; TEMP 98
--- NOTE | 2020-10-19 21:32 | NUR ---
PT SETTING UP IN BED, HAS SOME PAIN IN ABD DUE TO BLOATING, NO BM FOR 3 DAYS. TYRELL CALLED FOR ORDER FOR LAX. MIRALAX GIVEN. XANAX GIVEN FOR ANIEXTY SLEEP. PLEASENT AND THANKFUL TONIGHT. DENIES ANY NEEDS. PLAN OF CARE DISCUSSED.
[2020-10-20 00:11] VITALS: BP 116/62; PULSE 73; TEMP 98.1
--- NOTE | 2020-10-20 05:00 | NUR ---
PT SLEPT ALL NIGHT WITHOUT INCIDENT. NEEDS MET.
[2020-10-20 06:48] LABS: HEMATOCRIT 40.3 % (37.0-47.0); MEAN CELL VOLUME 96 fl (80.0-100.0); MEAN CORPUSCULAR HEMOGLOBIN 31 pg (27.0-31.0); MEAN CORPUSCULAR HGB CONC 32 g/dl (33.0-37.0); MEAN PLATELET VOLUME 9.3 fl (7.4-10.4); PLATELET COUNT 293 K/mm3 (130-400); RED BLOOD COUNT 4.22 M/mm3 (4.10-5.30); REDCELL DISTRIBUTION WIDTH-CV 13.5 % (11.5-14.5)
[2020-10-20 07:07] LABS: CALCIUM 9.3 mg/dL (8.4-10.2); CREATININE, serum 0.93 (0.52-1.25); POTASSIUM 4.7 mmol/L (3.4-5.0)
[2020-10-20 07:50] VITALS: BP 125/69; PULSE 63; TEMP 97.5
[2020-10-20] MEDS ORDERED: METAMUCIL3.4 GM/DOS PO (09:44)
[2020-10-20] MEDS ORDERED: FLONASEALLERGY NS (09:44)
[2020-10-20] MEDS ORDERED: PREDNISONE20 MG PO (09:44)
--- NOTE | 2020-10-20 10:36 | NUR ---
Discharge instructions reviewed with the patient, instructed to follow up as we have scheduled her with PCP/ Cards/ Pulm, discussed meds changes to Lasix dosing, new scripts sent to [facility] for her, IV and tele removed, she will be leaving with a girlfriend, CALIBRATION ENGINEER will escort her out when her ride arrives
--- NOTE | 2020-10-20 12:30 | NUR ---
Primary nurse was assisted with [id number] patient care by [facility] Amparo Camacho and [employer] [employer] instructor Tanna Milan RN-.
== END 2020-10-20 10:58 | disposition home or self-care (01) | DRG 291 ==
LOC: COL.ER 06:29 → MEDICAL 09:42
PROVIDERS: Emergency Medicine; Physician Assistant; ADMIT Internal Medicine
DX: I11.0 Hypertensive heart disease with heart failure (principal); J18.9 Pneumonia, unspecified organism; J96.01 Acute respiratory failure with hypoxia; I25.10 Atherosclerotic heart disease of native coronary artery without angina pectoris; I25.5 Ischemic cardiomyopathy; Z20.822 Contact with and (suspected) exposure to COVID-19; I50.23 Acute on chronic systolic (congestive) heart failure; I27.20 Pulmonary hypertension, unspecified; F41.9 Anxiety disorder, unspecified; F32.9 Major depressive disorder, single episode, unspecified; F17.210 Nicotine dependence, cigarettes, uncomplicated; F15.10 Other stimulant abuse, uncomplicated; J43.9 Emphysema, unspecified; I34.0 Nonrheumatic mitral (valve) insufficiency; Z90.89 Acquired absence of other organs; Z95.818 Presence of other cardiac implants and grafts
CPT/HCPCS: 99223-AI; 99233-AI; 99239; J1100; J1650; J1940; J1956; J2920; J3475; J7030

== ENCOUNTER 2020-11-03 09:57 | Day surgery (SDC) | payer MEDICAID, OTHER ==
[~2020-11-03] VITALS: Ht 167.6 cm; Wt 71.0 kg
[2020-11-03] VITALS (13 sets, daily range): BP systolic 95–124; BP diastolic 55–74; PULSE 53–64; TEMP 98
[~2020-11-03 09:57] MED LIST changes: +ASPIRIN 81M81 MG/TA2 PO; +CARDIZEM120 MG PO; +FLONASE NASAL S16 GM NS; +FLONASEALLERGY NS; +LEVAQUIN 5500 MG/TA1 PO; +MEDROL 4MG DOSPA4 MG PO; +METAMUCIL3.4 GM/DOS PO; +TRELEGY ELLIPT1 EACH IH
[2020-11-03 10:54] LABS: HEMATOCRIT 39.3 % (37.0-47.0); HEMOGLOBIN 12.6 g/dl (12.5-16.0); MEAN CELL VOLUME 97 fl (80.0-100.0); MEAN CORPUSCULAR HEMOGLOBIN 31 pg (27.0-31.0); MEAN CORPUSCULAR HGB CONC 32 g/dl (33.0-37.0); MEAN PLATELET VOLUME 8.5 fl (7.4-10.4); PLATELET COUNT 215 K/mm3 (130-400); RED BLOOD COUNT 4.06 M/mm3 (4.10-5.30); REDCELL DISTRIBUTION WIDTH-CV 13.5 % (11.5-14.5)
[2020-11-03 10:59] LABS: CALCIUM 8.9 mg/dL (8.4-10.2); CREATININE, serum 1.2 (0.52-1.25); POTASSIUM 3.6 mmol/L (3.4-5.0)
[2020-11-03 11:00] LABS: INR 1.1 (0.8-3.0); PROTHROMBIN TIME 11.9 SECONDS (9.7-12.8)
[2020-11-03 11:03] LABS: PARTIAL THROMBOPLASTIN TIME 29.2 SECONDS (26.0-37.0)
[2020-11-03] MEDS ORDERED: PROAIR HFA0.09 MG/AC IH (11:29)
[2020-11-03] MEDS ORDERED: PEPCID 20MG TAB20 MG PO (11:35)
[2020-11-03] MEDS ORDERED: FLONASE NASAL S16 GM NS (11:36)
--- NOTE | 2020-11-03 13:00 | NUR ---
Report from Audrey GREER. Transferred from laborer landscape by bed. Right Tband with 12 cc air CD&I, good pulses and cap refill < 3 secs noted.
--- NOTE | 2020-11-03 17:45 | NUR ---
12 cc air released from right Tband and dressing applied . Eating dinner at this time per Dr. edith rivas.
--- NOTE | 2020-11-03 18:37 | NUR ---
Ambulated around nurses station with stand by assist. INT discontinued intact. Discharge instructions given
--- NOTE | 2020-11-03 18:51 | NUR ---
Transferred to private car by mehreen
== END 2020-11-03 18:51 | disposition home or self-care (01) ==
LOC: COL.CAR 09:57
PROVIDERS: Internal Medicine Cardiovascular Disease
DX: R07.89 Other chest pain (principal); I25.10 Atherosclerotic heart disease of native coronary artery without angina pectoris; I25.2 Old myocardial infarction; I10 Essential (primary) hypertension; J44.9 Chronic obstructive pulmonary disease, unspecified; Z95.1 Presence of aortocoronary bypass graft
CPT/HCPCS: 99214; J1644; J2250; J2405; J3010; Q9967

== ENCOUNTER 2021-07-19 01:46 | Emergency (ER) | payer MEDICAID ==
[2021-07-19 02:10] LABS: HEMATOCRIT 38.6 % (37.0-47.0); HEMOGLOBIN 12.3 g/dl (12.5-16.0); MEAN CELL VOLUME 98 fl (80.0-100.0); MEAN CORPUSCULAR HEMOGLOBIN 31 pg (27.0-31.0); MEAN CORPUSCULAR HGB CONC 32 g/dl (33.0-37.0); MEAN PLATELET VOLUME 9.4 fl (7.4-10.4); PLATELET COUNT 284 K/mm3 (130-400); RED BLOOD COUNT 3.96 M/mm3 (4.10-5.30); REDCELL DISTRIBUTION WIDTH-CV 13.9 % (11.5-14.5)
[2021-07-19 02:12] LABS: ARTERIAL BLD GAS O2 SATURATION 98.7 % (92-100); ARTERIAL BLD GAS TCO2 CT 20.9; ARTERIAL BLOOD GAS HCO3 19.4 meq/L (22-26); ARTERIAL BLOOD GAS PCO2 46.9 mmHg (35-45); ARTERIAL BLOOD GAS pH 7.24 (7.35-7.45)
[2021-07-19 02:13] LABS: ARTERIAL BLOOD GAS PO2 160.2 mmHg (80-100)
[2021-07-19 02:28] LABS: ALBUMIN 3.7 gm/dL (3.4-4.8); BILIRUBIN,TOTAL 0.4 mg/dL (0.2-1.2); CALCIUM 8.5 mg/dL (8.4-10.2); CREATININE, serum 1.19 mg/dL (0.57-1.11); POTASSIUM 4.4 mmol/L (3.5-4.5); TOTAL PROTEIN 6.7 gm/dL (6.2-8.1)
[2021-07-19 02:34] LABS: TROPONIN-I 0.017 ng/mL (0.00-0.033)
[2021-07-19 02:57] LABS: BAND 5 % (0-10); EOSINOPHIL 5 % (0-4); NEUTROPHILS 36 % (42.0-75.2); PLATELET ESTIMATE NORMAL (NORMAL)
[2021-07-19 02:58] LABS: HYPOCHROMIA 1+
[2021-07-19 02:59] LABS: LYMPHOCYTE 48 % (20.0-51.0)
[2021-07-19 03:15] VITALS: TEMP 97.9
[2021-07-19] MEDS ORDERED: DOXYCYCLINE 10100 MG PO (05:13)
[2021-07-19] MEDS ORDERED: PREDNISONE50 MG PO (05:13)
[2021-07-19] MEDS ORDERED: PROAIR HFA0.09 MG/AC IH (05:13)
[2021-07-19 05:23] VITALS: BP 123/84; PULSE 97
== END 2021-07-19 05:23 | disposition home or self-care (01) ==
LOC: COL.ER 01:46
PROVIDERS: Emergency Medicine
DX: J44.9 Chronic obstructive pulmonary disease, unspecified (principal); J96.01 Acute respiratory failure with hypoxia; I25.10 Atherosclerotic heart disease of native coronary artery without angina pectoris; I25.2 Old myocardial infarction; K21.9 Gastro-esophageal reflux disease without esophagitis; F41.9 Anxiety disorder, unspecified; Z20.822 Contact with and (suspected) exposure to COVID-19; Z87.891 Personal history of nicotine dependence; Z79.02 Long term (current) use of antithrombotics/antiplatelets; Z79.899 Other long term (current) drug therapy
CPT/HCPCS: J1940; J2060; J2930

== ENCOUNTER 2021-07-24 08:56 | Emergency (ER) | payer MEDICAID ==
[~2021-07-24] VITALS: Ht 172.7 cm; Wt 77.3 kg
[~2021-07-24 08:56] MED LIST changes: +PREDNISONE50 MG PO
[2021-07-24 10:23] LABS: MEAN CELL VOLUME 101 fl (80.0-100.0); MEAN CORPUSCULAR HEMOGLOBIN 31 pg (27.0-31.0); MEAN CORPUSCULAR HGB CONC 31 g/dl (33.0-37.0); MEAN PLATELET VOLUME 9.1 fl (7.4-10.4); PLATELET COUNT 258 K/mm3 (130-400); RED BLOOD COUNT 3.88 M/mm3 (4.10-5.30); REDCELL DISTRIBUTION WIDTH-CV 14.6 % (11.5-14.5)
[2021-07-24 10:39] LABS: ALBUMIN 3.8 gm/dL (3.4-4.8); BILIRUBIN,TOTAL 0.4 mg/dL (0.2-1.2); CALCIUM 8.4 mg/dL (8.4-10.2); CREATININE, serum 0.89 mg/dL (0.57-1.11); POTASSIUM 3.6 mmol/L (3.5-4.5); TOTAL PROTEIN 6.5 gm/dL (6.2-8.1)
[2021-07-24 10:45] LABS: TROPONIN-I 0.021 ng/mL (0.00-0.033)
[2021-07-24 10:54] LABS: BAND 1 % (0-10); EOSINOPHIL 1 % (0-4); LYMPHOCYTE 37 % (20.0-51.0); MYELOCYTE 1 % (0-0); NEUTROPHILS 53 % (42.0-75.2); PLATELET ESTIMATE NORMAL (NORMAL)
[2021-07-24 10:55] LABS: HYPOCHROMIA 1+
[2021-07-24] MEDS ORDERED: PREDNISONE20 MG PO (11:54)
[2021-07-24] MEDS ORDERED: LEVAQUIN 5500 MG/TA1 PO (11:54)
[2021-07-24 12:03] VITALS: BP 165/98; PULSE 72
== END 2021-07-24 12:05 | disposition home or self-care (01) ==
LOC: COL.ER 08:56
PROVIDERS: Personal Emergency Response Attendant
DX: J44.1 Chronic obstructive pulmonary disease with (acute) exacerbation (principal); I50.9 Heart failure, unspecified; F17.200 Nicotine dependence, unspecified, uncomplicated; Z79.899 Other long term (current) drug therapy; Z79.52 Long term (current) use of systemic steroids; Z79.51 Long term (current) use of inhaled steroids
CPT/HCPCS: J1940; J1956; J2930

== ENCOUNTER 2021-08-21 09:20 | Emergency (ER) | payer MEDICAID ==
[~2021-08-21] VITALS: Ht 172.7 cm; Wt 75.0 kg
[2021-08-21 10:05] LABS: BASO % 0.2 % (0.0-2.0); EOS # 0.3 K/mm3 (0.0-0.7); EOS % 2.6 % (0.0-4.0); GRAN # 7.1 K/mm3 (1.4-6.5); GRAN % 71.8 % (42.2-75.2); HEMOGLOBIN 11.9 g/dl (12.5-16.0); LYMPH # 1.9 K/mm3 (1.2-3.4); LYMPH % 18.8 % (20.0-51.0); MEAN CELL VOLUME 96 fl (80.0-100.0); MEAN CORPUSCULAR HEMOGLOBIN 31 pg (27-31); MEAN CORPUSCULAR HGB CONC 33 g/dl (33.0-37.0); MEAN PLATELET VOLUME 9.3 fl (7.4-10.4); MONO # 0.6 K/mm3 (0.1-0.6); MONO % 6.3 % (1.7-9.3); PLATELET COUNT 251 K/mm3 (130-400); RED BLOOD COUNT 3.81 M/mm3 (4.10-5.30); REDCELL DISTRIBUTION WIDTH-CV 13.8 % (11.5-14.5)
[2021-08-21 10:06] LABS: HEMATOCRIT 36.4 % (37.0-47.0)
[2021-08-21 10:24] LABS: ALBUMIN 3.6 gm/dL (3.4-4.8); BILIRUBIN,TOTAL 0.5 mg/dL (0.2-1.2); CALCIUM 8.8 mg/dL (8.4-10.2); CREATININE, serum 1.03 mg/dL (0.57-1.11); POTASSIUM 3.8 mmol/L (3.5-4.5); TOTAL PROTEIN 6.1 gm/dL (6.2-8.1)
[2021-08-21 10:30] LABS: TROPONIN-I 0.013 ng/mL (0.00-0.033)
[2021-08-21] MEDS ORDERED: PREDNISONE50 MG PO (11:03)
[2021-08-21] MEDS ORDERED: ZITHROMAX Z PA250 MG PO (11:03)
[2021-08-21] MEDS ORDERED: VENTOLIN0.09 MG IH (11:03)
[2021-08-21 11:15] VITALS: BP 165/100; PULSE 88
== END 2021-08-21 11:25 | disposition home or self-care (01) ==
LOC: COL.ER 09:20
PROVIDERS: Emergency Medicine
DX: R06.03 Acute respiratory distress (principal); I25.10 Atherosclerotic heart disease of native coronary artery without angina pectoris; J44.9 Chronic obstructive pulmonary disease, unspecified; I25.2 Old myocardial infarction; K21.9 Gastro-esophageal reflux disease without esophagitis; F41.9 Anxiety disorder, unspecified; I50.9 Heart failure, unspecified; Z79.899 Other long term (current) drug therapy; Z79.52 Long term (current) use of systemic steroids; Z79.02 Long term (current) use of antithrombotics/antiplatelets; Z20.822 Contact with and (suspected) exposure to COVID-19; Z79.82 Long term (current) use of aspirin
CPT/HCPCS: J2930

== ENCOUNTER 2022-01-15 22:52 | Emergency (ER) | payer MEDICAID ==
[~2022-01-15] VITALS: Ht 172.7 cm; Wt 79.5 kg
[2022-01-15 23:05] VITALS: TEMP 97.5
[2022-01-16] MEDS ORDERED: PREDNISONE20 MG PO ×2 (00:32→22:54)
[2022-01-16 00:43] VITALS: BP 156/92; PULSE 70
[2022-01-16] MEDS ORDERED: PRINIVIL10 MG PO (22:56)
[2022-01-16] MEDS ORDERED: PLAVIX 75MG TAB75 MG PO (22:56)
[2022-01-16] MEDS ORDERED: ZANAFLEX CAPSULE4 MG PO (22:56)
[2022-01-16] MEDS ORDERED: TRELEGY ELLIPT1 EACH IH (22:56)
[2022-01-16] MEDS ORDERED: LASIX 20MG TABL20 MG PO (22:57)
[2022-01-16] MEDS ORDERED: ALBUTEROL0.83 MG/ML IH (22:57)
[2022-01-16] MEDS ORDERED: ASPIRIN 81M81 MG/TA2 PO (22:58)
[2022-01-16] MEDS ORDERED: ASPIRIN 32325 MG/TAB PO (22:58)
== END 2022-01-16 00:43 | disposition home or self-care (01) ==
LOC: COL.ER 22:52
DX: J44.9 Chronic obstructive pulmonary disease, unspecified (principal); K21.9 Gastro-esophageal reflux disease without esophagitis; F17.210 Nicotine dependence, cigarettes, uncomplicated; Z28.310 Unvaccinated for COVID-19
CPT/HCPCS: J7512

== ENCOUNTER 2022-01-16 18:39 | Observation (INO) | payer MEDICAID ==
[~2022-01-16] VITALS: Ht 172.7 cm; Wt 78.5 kg
[2022-01-16 18:53] LABS: BASO % 0.1 % (0.0-2.0); EOS % 0.1 % (0.0-4.0); GRAN # 8.4 K/mm3 (1.4-6.5); GRAN % 85.1 % (42.2-75.2); HEMATOCRIT 40.1 % (37.0-47.0); HEMOGLOBIN 13.1 g/dl (12.5-16.0); LYMPH # 1.1 K/mm3 (1.2-3.4); MEAN CELL VOLUME 95 fl (80.0-100.0); MEAN CORPUSCULAR HEMOGLOBIN 31 pg (27-31); MEAN CORPUSCULAR HGB CONC 33 g/dl (33.0-37.0); MEAN PLATELET VOLUME 9.2 fl (7.4-10.4); MONO # 0.3 K/mm3 (0.1-0.6); MONO % 3.4 % (1.7-9.3); PLATELET COUNT 273 K/mm3 (130-400); RED BLOOD COUNT 4.21 M/mm3 (4.10-5.30); REDCELL DISTRIBUTION WIDTH-CV 13.5 % (11.5-14.5)
[2022-01-16 19:06] LABS: PROTHROMBIN TIME 10.9 SECONDS (9.7-12.8)
[2022-01-16 19:08] LABS: ALANINE AMINOTRANSFERASE 12 U/L (0-55); ALKALINE PHOSPHATASE 112 U/L (40-150); ANION GAP 16 mmol/L (7-16); AST,SGOT 13 U/L (5-34); BILIRUBIN,TOTAL 0.2 mg/dL (0.2-1.2); BLOOD UREA NITROGEN 26 mg/dL (10-20); CALCIUM 8.5 mg/dL (8.4-10.2); CARBON DIOXIDE 22 mmol/L (23-31); CHLORIDE 102 mmol/L (98-107); CREATININE, serum 0.99 mg/dL (0.57-1.11); GLUCOSE 190 mg/dL (70-99); POTASSIUM 4.3 mmol/L (3.5-4.5); SODIUM 140 mmol/L (136-145); TOTAL PROTEIN 7.4 gm/dL (6.2-8.1)
[2022-01-16 19:09] LABS: PARTIAL THROMBOPLASTIN TIME 31.6 SECONDS (26.0-37.0)
[2022-01-16 19:14] LABS: D-DIMER < 200.00 ng/mLDDu (200-230)
[2022-01-16 19:22] LABS: TROPONIN-I < 0.010 ng/mL (0.00-0.033)
[2022-01-16] MEDS ORDERED: PREDNISONE20 MG PO (22:54)
[2022-01-16] MEDS ORDERED: PRINIVIL10 MG PO (22:56)
[2022-01-16] MEDS ORDERED: PLAVIX 75MG TAB75 MG PO (22:56)
[2022-01-16] MEDS ORDERED: TRELEGY ELLIPT1 EACH IH (22:56)
[2022-01-16] MEDS ORDERED: ZANAFLEX CAPSULE4 MG PO (22:56)
[2022-01-16] MEDS ORDERED: ALBUTEROL0.83 MG/ML IH (22:57)
[2022-01-16] MEDS ORDERED: LASIX 20MG TABL20 MG PO (22:57)
[2022-01-16] MEDS ORDERED: ASPIRIN 32325 MG/TAB PO (22:58)
[2022-01-16] MEDS ORDERED: ASPIRIN 81M81 MG/TA2 PO (22:58)
[2022-01-17] VITALS (8 sets, daily range): BP systolic 121–153; BP diastolic 65–93; PULSE 67–94; TEMP 97.8–98.6
[2022-01-17 05:06] LABS: BASO % 0.3 % (0.0-2.0); EOS % 0.1 % (0.0-4.0); GRAN # 6.1 K/mm3 (1.4-6.5); GRAN % 85.6 % (42.2-75.2); HEMATOCRIT 39.3 % (37.0-47.0); HEMOGLOBIN 12.9 g/dl (12.5-16.0); LYMPH # 0.9 K/mm3 (1.2-3.4); LYMPH % 11.8 % (20.0-51.0); MEAN CELL VOLUME 95 fl (80.0-100.0); MEAN CORPUSCULAR HEMOGLOBIN 31 pg (27-31); MEAN CORPUSCULAR HGB CONC 33 g/dl (33.0-37.0); MEAN PLATELET VOLUME 9.1 fl (7.4-10.4); MONO # 0.2 K/mm3 (0.1-0.6); MONO % 2.1 % (1.7-9.3); PLATELET COUNT 243 K/mm3 (130-400); RED BLOOD COUNT 4.12 M/mm3 (4.10-5.30); REDCELL DISTRIBUTION WIDTH-CV 13.6 % (11.5-14.5)
[2022-01-17 05:39] LABS: ANION GAP 12 mmol/L (7-16); BLOOD UREA NITROGEN 24 mg/dL (10-20); CALCIUM 8.5 mg/dL (8.4-10.2); CARBON DIOXIDE 21 mmol/L (23-31); CHLORIDE 106 mmol/L (98-107); CHOLESTEROL 161 mg/dL (0-199); CHOLESTEROL RISK RATIO 2.9; CREATININE, serum 0.86 mg/dL (0.57-1.11); GLUCOSE 140 mg/dL (70-99); HDL CHOLESTEROL 54 mg/dL (40-60); LDL CHOLESTEROL 93 mg/dL; POTASSIUM 4.9 mmol/L (3.5-4.5); SODIUM 139 mmol/L (136-145); TRIGLYCERIDE 69 mg/dL (0-149)
[2022-01-17 05:47] LABS: TROPONIN-I < 0.010 ng/mL (0.00-0.033)
--- NOTE | 2022-01-17 11:52 | NUR ---
PATIENT C/O OF LEFT UPPER AND LOWER QUD PAIN ON PALPATION. RIGHT UPPER QUAD "KNOT WHEN BENDING OVER" PAIN ON PALPATION. NO EDEMA, NO CONFUSION, NO WEAKNESS. NO OTHER COMPLAINTS OF PAIN. MEDS TAKEN WITH SIPS OF WATER. PLAN FOR GABRIEL SCAN TODAY.
--- NOTE | 2022-01-17 12:37 | NUR ---
patch worker met with patient to discuss discharge plan. Patient currently resides at home alone in [facility]. She reports to being fully independent with her ADL's and does not utilize any DME to assit with mobility. Patient is on 2L of [place] oxygen at night that is provided by [employer]. PCP is Dr. Banks and she utilizes [facility] for medications with no cost difficulty. Patient does not have a DPOA-HC established at this time. She is not but does have two children, her son Marcos and daughter Kamila .Patient is planning on returning home once medically ready. Discharge plan: Home
--- NOTE | 2022-01-17 19:06 | NUR ---
Patient lexiscan rescheduled for tomorrow. No significant events today, no significant complaints of pain. Independent in room.
[2022-01-18] VITALS (8 sets, daily range): BP systolic 128–167; BP diastolic 83–98; PULSE 77–95; TEMP 97.8–97.9
[2022-01-18 03:04] LABS: CALCIUM 8.4 mg/dL (8.4-10.2); CREATININE, serum 1.05 mg/dL (0.57-1.11); MAGNESIUM 2.6 mg/dL (1.6-2.6); POTASSIUM 4.6 mmol/L (3.5-4.5)
--- NOTE | 2022-01-18 07:30 | NUR ---
Patient laying in bed, sleeping, easily awakened with verbal command. A&Ox4. VSS. IV CDI. Denies pain and discomfort. NPO for a procedure. Call light within reach
[2022-01-18] MEDS ORDERED: ASPIRIN 81M81 MG/TA2 PO (13:45)
[2022-01-18] MEDS ORDERED: MEDROL 4MG DOSPA4 MG PO (13:45)
[2022-01-18] MEDS ORDERED: AL-MAG HYDROX-S30 ML PO (13:47)
[2022-01-18] MEDS ORDERED: TOPROL XL 25MG25 MG PO (13:49)
--- NOTE | 2022-01-18 15:30 | NUR ---
Discharge paperwork reviewed with the patient. Patient verbalized an understanding to follow doctors orders. IV removed, tip intact. Patient ambulated independent with nursing staff to car at the ED.
== END 2022-01-18 15:34 | disposition home or self-care (01) ==
LOC: COL.ER 18:39 → MEDICAL 20:57
PROVIDERS: Family Medicine; Nurse Practitioner Family; ADMIT Internal Medicine
DX: R07.9 Chest pain, unspecified (principal); I11.0 Hypertensive heart disease with heart failure; I25.5 Ischemic cardiomyopathy; I25.10 Atherosclerotic heart disease of native coronary artery without angina pectoris; I25.2 Old myocardial infarction; I50.20 Unspecified systolic (congestive) heart failure; J43.9 Emphysema, unspecified; F17.210 Nicotine dependence, cigarettes, uncomplicated; Z79.899 Other long term (current) drug therapy; Z79.82 Long term (current) use of aspirin; Z79.02 Long term (current) use of antithrombotics/antiplatelets
CPT/HCPCS: A9500; C9113; G0378; J1650; J2785; J2920; J7030; J7512

== ENCOUNTER 2022-01-22 22:15 | Emergency (ER) | payer MEDICAID ==
[~2022-01-22] VITALS: Ht 172.7 cm; Wt 77.3 kg
[~2022-01-22 22:15] MED LIST changes: +AL-MAG HYDROX-S30 ML PO; +ALBUTEROL0.83 MG/ML IH; +PRINIVIL10 MG PO; +TOPROL XL 25MG25 MG PO; +ZANAFLEX CAPSULE4 MG PO
[2022-01-22 22:36] VITALS: TEMP 97.9
[2022-01-22] MEDS ORDERED: NYSTATIN OR100 MU/ML PO (22:57)
[2022-01-22] MEDS ORDERED: DULCOLAX STOOL100 MG PO (22:57)
[2022-01-22 23:29] VITALS: BP 129/81; PULSE 68
== END 2022-01-22 23:32 | disposition home or self-care (01) ==
LOC: COL.ER 22:15
DX: B37.0 Candidal stomatitis (principal); K59.00 Constipation, unspecified; R11.0 Nausea; F17.200 Nicotine dependence, unspecified, uncomplicated; Z28.310 Unvaccinated for COVID-19

== ENCOUNTER 2022-05-05 22:17 | Emergency (ER) | payer MEDICAID ==
[~2022-05-05] VITALS: Ht 172.7 cm; Wt 77.3 kg
[2022-05-05 22:17] VITALS: BP 134/83; TEMP 97.7
[~2022-05-05 22:17] MED LIST changes: +DULCOLAX STOOL100 MG PO; +NYSTATIN OR100 MU/ML PO; +ZITHROMAX TRI-500 MG PO
[2022-05-05 22:45] VITALS: PULSE 84
== END 2022-05-05 22:48 | disposition home or self-care (01) ==
LOC: COL.ER 22:17
DX: J44.1 Chronic obstructive pulmonary disease with (acute) exacerbation (principal); F17.200 Nicotine dependence, unspecified, uncomplicated; Z28.310 Unvaccinated for COVID-19
CPT/HCPCS: J8540

== ENCOUNTER 2022-05-09 01:04 | Emergency (ER) | payer MEDICAID ==
[~2022-05-09] VITALS: Ht 172.7 cm; Wt 77.3 kg
[2022-05-09 01:04] VITALS: TEMP 97.5
[2022-05-09 01:31] LABS: BASO # 0.1 K/mm3 (0.0-0.2); BASO % 0.6 % (0.0-2.0); EOS # 0.2 K/mm3 (0.0-0.7); EOS % 2.3 % (0.0-4.0); GRAN # 3.8 K/mm3 (1.4-6.5); GRAN % 43.3 % (42.2-75.2); HEMATOCRIT 38.5 % (37.0-47.0); HEMOGLOBIN 12.7 g/dl (12.5-16.0); LYMPH # 3.8 K/mm3 (1.2-3.4); LYMPH % 43.3 % (20.0-51.0); MEAN CELL VOLUME 97 fl (80.0-100.0); MEAN CORPUSCULAR HEMOGLOBIN 32 pg (27-31); MEAN CORPUSCULAR HGB CONC 33 g/dl (33.0-37.0); MEAN PLATELET VOLUME 9.2 fl (7.4-10.4); MONO # 0.9 K/mm3 (0.1-0.6); MONO % 10.3 % (1.7-9.3); PLATELET COUNT 256 K/mm3 (130-400); RED BLOOD COUNT 3.98 M/mm3 (4.10-5.30); REDCELL DISTRIBUTION WIDTH-CV 13.3 % (11.5-14.5)
[2022-05-09 01:33] LABS: PARTIAL THROMBOPLASTIN TIME 29.8 SECONDS (26.0-37.0)
[2022-05-09 01:36] LABS: ALBUMIN 3.9 gm/dL (3.4-4.8); BILIRUBIN,TOTAL 0.3 mg/dL (0.2-1.2); CALCIUM 8.7 mg/dL (8.4-10.2); CREATININE, serum 1.15 mg/dL (0.57-1.11); POTASSIUM 3.8 mmol/L (3.5-4.5); TOTAL PROTEIN 6.5 gm/dL (6.2-8.1)
[2022-05-09 01:42] LABS: TROPONIN-I 0.023 ng/mL (0.00-0.033)
[2022-05-09 02:15] VITALS: BP 91/53; PULSE 61
== END 2022-05-09 02:15 | disposition short-term general hospital (02) ==
LOC: COL.ER 01:04
PROVIDERS: Emergency Medicine
DX: I21.3 ST elevation (STEMI) myocardial infarction of unspecified site (principal); I25.2 Old myocardial infarction; I50.20 Unspecified systolic (congestive) heart failure; Z28.310 Unvaccinated for COVID-19; Z95.5 Presence of coronary angioplasty implant and graft
CPT/HCPCS: J1644; J2270; J2405; J3101

== ENCOUNTER 2022-09-12 13:27 | Emergency (ER) | payer MEDICAID ==
[~2022-09-12] VITALS: Ht 172.7 cm; Wt 76.8 kg
[~2022-09-12 13:27] MED LIST changes: +COREG12.5 MG; +MAG-OX 400400 MG/TAB PO; +WELLBUTRIN XL150 MG PO; +ZANAFLEX 4MG TAB4 MG PO; +ZYRTEC 10MG10 MG PO
[2022-09-12 13:32] VITALS: TEMP 100.5
[2022-09-12 15:07] LABS: ALBUMIN 3.8 gm/dL (3.4-4.8); BILIRUBIN,TOTAL 0.4 mg/dL (0.2-1.2); CALCIUM 8.9 mg/dL (8.4-10.2); CREATININE, serum 1.06 mg/dL (0.57-1.11); POTASSIUM 4.8 mmol/L (3.5-4.5); TOTAL PROTEIN 6.5 gm/dL (6.2-8.1)
[2022-09-12 15:11] LABS: BASO % 0.4 % (0.0-2.0); EOS # 0.1 K/mm3 (0.0-0.7); EOS % 1.3 % (0.0-4.0); GRAN # 5.1 K/mm3 (1.4-6.5); GRAN % 75.6 % (42.2-75.2); HEMOGLOBIN 12.3 g/dl (12.5-16.0); MEAN CELL VOLUME 93 fl (80.0-100.0); MEAN CORPUSCULAR HEMOGLOBIN 31 pg (27-31); MEAN CORPUSCULAR HGB CONC 34 g/dl (33.0-37.0); MEAN PLATELET VOLUME 9.2 fl (7.4-10.4); MONO # 0.6 K/mm3 (0.1-0.6); MONO % 8.4 % (1.7-9.3); PLATELET COUNT 173 K/mm3 (130-400); RED BLOOD COUNT 3.95 M/mm3 (4.10-5.30); REDCELL DISTRIBUTION WIDTH-CV 13.2 % (11.5-14.5)
[2022-09-12 15:13] LABS: HEMATOCRIT 36.7 % (37.0-47.0)
[2022-09-12 15:16] LABS: TROPONIN-I 0.018 ng/mL (0.00-0.033)
[2022-09-12] MEDS ORDERED: PREDNISONE20 MG PO (15:49)
[2022-09-12] MEDS ORDERED: ZITHROMAX 250M250 MG PO (15:49)
[2022-09-12 16:10] VITALS: BP 141/86; PULSE 93
== END 2022-09-12 16:21 | disposition home or self-care (01) ==
LOC: COL.ER 13:27
PROVIDERS: Physician Assistant
DX: U07.1 COVID-19 (principal); R50.9 Fever, unspecified; J44.1 Chronic obstructive pulmonary disease with (acute) exacerbation; F17.210 Nicotine dependence, cigarettes, uncomplicated; Z99.81 Dependence on supplemental oxygen; Z88.1 Allergy status to other antibiotic agents; Z28.310 Unvaccinated for COVID-19
CPT/HCPCS: J2930; J7120

== ENCOUNTER 2022-11-19 00:52 | Emergency (ER) | payer MEDICAID ==
[~2022-11-19] VITALS: Ht 172.7 cm; Wt 79.1 kg
[~2022-11-19 00:52] MED LIST changes: +ZITHROMAX 250M250 MG PO
[2022-11-19 00:55] VITALS: TEMP 98.2
[2022-11-19 01:43] LABS: BASO % 0.3 % (0.0-2.0); EOS # 0.1 K/mm3 (0.0-0.7); GRAN % 62.2 % (42.2-75.2); HEMATOCRIT 38.8 % (37.0-47.0); HEMOGLOBIN 12.7 g/dl (12.5-16.0); LYMPH # 1.7 K/mm3 (1.2-3.4); MEAN CELL VOLUME 95 fl (80.0-100.0); MEAN CORPUSCULAR HEMOGLOBIN 31 pg (27-31); MEAN CORPUSCULAR HGB CONC 33 g/dl (33.0-37.0); MONO # 0.5 K/mm3 (0.1-0.6); MONO % 8.2 % (1.7-9.3); PLATELET COUNT 204 K/mm3 (130-400); RED BLOOD COUNT 4.07 M/mm3 (4.10-5.30); REDCELL DISTRIBUTION WIDTH-CV 13.4 % (11.5-14.5)
[2022-11-19 01:50] LABS: STREP SCREEN NEGATIVE
[2022-11-19 02:00] LABS: ALBUMIN 4.2 gm/dL (3.4-4.8); BILIRUBIN,TOTAL 0.3 mg/dL (0.2-1.2); CALCIUM 9.3 mg/dL (8.4-10.2); CREATININE, serum 1.51 mg/dL (0.57-1.11); POTASSIUM 4.4 mmol/L (3.5-4.5); TOTAL PROTEIN 7.2 gm/dL (6.2-8.1)
[2022-11-19 02:05] LABS: TROPONIN-I 0.015 ng/mL (0.00-0.033)
[2022-11-19 02:55] VITALS: BP 140/90; PULSE 78
== END 2022-11-19 02:55 | disposition home or self-care (01) ==
LOC: COL.ER 00:52
PROVIDERS: Physician Assistant
DX: J03.90 Acute tonsillitis, unspecified (principal); R07.9 Chest pain, unspecified; J44.9 Chronic obstructive pulmonary disease, unspecified; Z95.5 Presence of coronary angioplasty implant and graft; Z28.310 Unvaccinated for COVID-19; Z99.81 Dependence on supplemental oxygen

== ENCOUNTER 2023-08-31 13:15 | Emergency (ER) | payer MEDICAID ==
[~2023-08-31] VITALS: Ht 172.7 cm; Wt 77.3 kg
[~2023-08-31 13:15] MED LIST changes: +MACROBID 1100 MG/CAP PO
[2023-08-31 13:22] VITALS: TEMP 97.5
[2023-08-31 14:03] LABS: ALBUMIN 4.1 gm/dL (3.4-4.8); BILIRUBIN,TOTAL 0.5 mg/dL (0.2-1.2); CALCIUM 9.8 mg/dL (8.4-10.2); CREATININE, serum 1.37 mg/dL (0.57-1.11); POTASSIUM 4.6 mmol/L (3.5-4.5); TOTAL PROTEIN 7.3 gm/dL (6.2-8.1)
[2023-08-31 14:09] LABS: TROPONIN-I 0.026 ng/mL (0.00-0.033)
[2023-08-31 14:14] LABS: BASO % 0.7 % (0.0-2.0); EOS # 0.2 K/mm3 (0.0-0.7); GRAN # 3.2 K/mm3 (1.4-6.5); GRAN % 56.7 % (42.2-75.2); HEMATOCRIT 41.4 % (37.0-47.0); HEMOGLOBIN 13.3 g/dl (12.5-16.0); LYMPH # 1.7 K/mm3 (1.2-3.4); LYMPH % 30.4 % (20.0-51.0); MEAN CELL VOLUME 99 fl (80.0-100.0); MEAN CORPUSCULAR HEMOGLOBIN 32 pg (27-31); MEAN CORPUSCULAR HGB CONC 32 g/dl (33.0-37.0); MEAN PLATELET VOLUME 9.4 fl (7.4-10.4); MONO # 0.5 K/mm3 (0.1-0.6); MONO % 7.9 % (1.7-9.3); PLATELET COUNT 197 K/mm3 (130-400); RED BLOOD COUNT 4.19 M/mm3 (4.10-5.30); REDCELL DISTRIBUTION WIDTH-CV 13.1 % (11.5-14.5)
[2023-08-31 14:17] VITALS: BP 128/74; PULSE 70
== END 2023-08-31 14:44 | disposition left against medical advice (07) ==
LOC: COL.ER 13:15
PROVIDERS: Physician Assistant
DX: R07.2 Precordial pain (principal); I10 Essential (primary) hypertension; R11.0 Nausea; Z79.02 Long term (current) use of antithrombotics/antiplatelets; Z79.82 Long term (current) use of aspirin; Z79.899 Other long term (current) drug therapy; Z87.891 Personal history of nicotine dependence; Z86.79 Personal history of other diseases of the circulatory system
CPT/HCPCS: J2405

== ENCOUNTER 2023-10-10 17:10 | Inpatient (IN) | payer MEDICAID ==
[~2023-10-10] VITALS: Ht 172.7 cm; Wt 83.7 kg
[~2023-10-10 17:10] MED LIST changes: +Atorvastatin 40 MG TAB PO SCH
[2023-10-10] MEDS ORDERED: Albuterol/Ipratropium 3 MG-0.5 MG/3 ML Neb Soln IH ONE (17:30)
[2023-10-10 17:56] LABS: BASO % 0.2 % (0.0-2.0); EOS # 0.2 K/mm3 (0.0-0.7); EOS % 1.6 % (0.0-4.0); GRAN # 7.2 K/mm3 (1.4-6.5); GRAN % 78.6 % (42.2-75.2); HEMATOCRIT 38.4 % (37.0-47.0); HEMOGLOBIN 12.4 g/dl (12.5-16.0); LYMPH # 1.1 K/mm3 (1.2-3.4); LYMPH % 12.4 % (20.0-51.0); MEAN CELL VOLUME 99 fl (80.0-100.0); MEAN CORPUSCULAR HEMOGLOBIN 32 pg (27-31); MEAN CORPUSCULAR HGB CONC 32 g/dl (33.0-37.0); MEAN PLATELET VOLUME 9.3 fl (7.4-10.4); MONO # 0.6 K/mm3 (0.1-0.6); PLATELET COUNT 210 K/mm3 (130-400); REDCELL DISTRIBUTION WIDTH-CV 12.9 % (11.5-14.5)
[2023-10-10 18:24] LABS: ALBUMIN 3.9 gm/dL (3.4-4.8); BILIRUBIN,TOTAL 0.5 mg/dL (0.2-1.2); CALCIUM 9.6 mg/dL (8.4-10.2); CREATININE, serum 0.92 mg/dL (0.57-1.11); TOTAL PROTEIN 6.9 gm/dL (6.2-8.1)
[2023-10-10 18:29] LABS: TROPONIN-I 0.014 ng/mL (0.00-0.033)
[2023-10-10] MEDS ORDERED: hydrALAZINE 20 MG/ML 1 ML VIAL IV PRN (19:15)
[2023-10-10] MEDS ORDERED: Acetaminophen 325 MG TAB PO PRN (19:15)
[2023-10-10] MEDS ORDERED: Ondansetron 4 MG/2 ML VIAL IV PRN (19:15)
[2023-10-10] MEDS ORDERED: Melatonin 3 MG TAB PO PRN (19:15)
[2023-10-10 19:27] LABS: COLLECTION METHOD CLEAN CATCH
[2023-10-10 19:30] LABS: PH 5.5 (5.0-8.5); URINE APPEARANCE CLEAR (CLEAR/HAZY); URINE BLOOD NEGATIVE (NEGATIVE); URINE COLOR YELLOW (YELLOW); URINE GLUCOSE NEGATIVE (NEGATIVE); URINE KETONE NEGATIVE (NEGATIVE); URINE NITRATE NEGATIVE (NEGATIVE); URINE PROTEIN(semi-quant) NEGATIVE (NEGATIVE); URINE UROBILINOGEN 0.2 E.U/dL (0.2-1.0)
[2023-10-10 20:18] VITALS: BP 182/118; PULSE 99; TEMP 98.3
--- NOTE | 2023-10-10 20:37 | NUR ---
THE PATIENT ARRIVED FROM THE ED IN A WC ACCOMPANIED BY ED STAFF. THE PATIENT WAS ALERT AND ORIENTED AND APPROPRIATE. THE PATIENT WAS NOT IN ANY DISTRESS UPON ARRIVAL. THE PATIENT IS ON 2 LPM OXYGEN WHICH IS HER BASELINE PER THE PATIENT. OXYGEN SATS WNL. THE PATIENT WAS ORIENTED TO THE ROOM AND BED CONTROLS. BED ALARM ON. BED IN LOW POSTION. PERSONAL ITEMS AND CALL LIGHT WITHIN REACH.
[2023-10-10 20:53] VITALS: BP 165/97
[2023-10-10] MEDS ORDERED: Carvedilol 6.25 MG TAB PO SCH (21:24)
[2023-10-10] MEDS ORDERED: Benzonatate 100 MG CAP PO PRN (21:30)
[2023-10-10] MEDS ORDERED: Mag/Al Hydrox/Simeth Susp 30 ML CUP PO PRN (21:30)
[2023-10-10] MEDS ORDERED: ALPRAZolam 0.5 MG TAB PO PRN (21:45)
--- NOTE | 2023-10-10 22:21 | NUR ---
PT REFUSED ABG.NURSE NOTIFIED.
[2023-10-10] MEDS ORDERED: Azithromycin 500 MG in NS 250 ML IV SCH (22:30)
[2023-10-10] MEDS ORDERED: Furosemide 40 MG/4 ML VIAL IV ONE (23:15)
[2023-10-10 23:45] LABS: TRICYCLIC ANTIDEPRESS URINE NEGATIVE (NEGATIVE)
[2023-10-10 23:59] VITALS: BP 131/76; PULSE 83; TEMP 98.2
[2023-10-11] VITALS (10 sets, daily range): BP systolic 114–151; BP diastolic 70–83; PULSE 65–92; TEMP 97.7–98.4
--- NOTE | 2023-10-11 03:14 | NUR ---
THE PATIENT REFUSED TO TAKE HER LOVENOX, GET HER CHEST CT AND HER ABG. ALE STEELE APRN WAS NOTIFIED.
[2023-10-11 06:39] LABS: BASO % 0.3 % (0.0-2.0); EOS # 0.1 K/mm3 (0.0-0.7); EOS % 1.4 % (0.0-4.0); GRAN % 71.7 % (42.2-75.2); HEMOGLOBIN 12.3 g/dl (12.5-16.0); LYMPH # 1.2 K/mm3 (1.2-3.4); LYMPH % 16.5 % (20.0-51.0); MEAN CORPUSCULAR HEMOGLOBIN 32 pg (27-31); MEAN CORPUSCULAR HGB CONC 34 g/dl (33.0-37.0); MEAN PLATELET VOLUME 9.6 fl (7.4-10.4); MONO # 0.7 K/mm3 (0.1-0.6); MONO % 9.8 % (1.7-9.3); PLATELET COUNT 205 K/mm3 (130-400); RED BLOOD COUNT 3.89 M/mm3 (4.10-5.30); REDCELL DISTRIBUTION WIDTH-CV 12.8 % (11.5-14.5)
[2023-10-11 06:56] LABS: CALCIUM 9.5 mg/dL (8.4-10.2); CREATININE, serum 1.05 mg/dL (0.57-1.11); MAGNESIUM 1.8 mg/dL (1.6-2.6); PHOSPHOROUS 3.3 mg/dL (2.3-4.7); POTASSIUM 3.9 mmol/L (3.5-4.5)
[2023-10-11 06:57] LABS: HEMATOCRIT 36.7 % (37.0-47.0); MEAN CELL VOLUME 94 fl (80.0-100.0)
[2023-10-11] MEDS ORDERED: Cetirizine 10 MG TAB PO SCH (09:00)
[2023-10-11] MEDS ORDERED: buPROPion XL (24-HR) 150 MG TAB PO SCH (09:00)
[2023-10-11] MEDS ORDERED: Fluticasone Nasal 50 MCG/Spray 16 GM BOTTLE NS SCH (09:00)
[2023-10-11] MEDS ORDERED: Furosemide 40 MG/4 ML VIAL IV SCH (09:00)
[2023-10-11] MEDS ORDERED: Clopidogrel 75 MG TAB PO SCH (09:00)
[2023-10-11] MEDS ORDERED: Lisinopril 20 MG TAB PO SCH (09:00)
[2023-10-11] MEDS ORDERED: Furosemide 20 MG TAB PO SCH (09:00)
[2023-10-11] MEDS ORDERED: tiZANidine 4 MG TAB PO SCH (09:00)
[2023-10-11] MEDS ORDERED: predniSONE 20 MG TAB PO SCH (11:33)
--- NOTE | 2023-10-11 12:58 | NUR ---
prop worker met with patient to discuss discharge planning. Patient lives in [place]. Best points of contact is Tiana (friend) P# [phone] or Otoniel (son) P# [phone]. PCP is Dr. Banks, pharmacy is [facility] [address]. No issues with affording medications. No DPOA-HC, SW left a blank DPOA-HC form as patient was possibly interested in completing one during her hospital stay. DME is oxygen concentrator for at night, nebulizer and defibrillator. Patient gets her oxygen and nebulizer serviced through [employer]. Reports to be independent with ADLS and is transporting herself to and from appointments. Patient would like to return home at time of discharge. Discharge plan: Home
[2023-10-11] MEDS ORDERED: Furosemide 40 MG TAB PO SCH (16:00)
[2023-10-11 22:15] LABS: CALCIUM 9.7 mg/dL (8.4-10.2); CREATININE, serum 1.42 mg/dL (0.57-1.11); POTASSIUM 4.4 mmol/L (3.5-4.5)
[2023-10-11 22:21] LABS: TROPONIN-I 0.01 ng/mL (0.00-0.033)
--- NOTE | 2023-10-11 23:18 | NUR ---
PT ALERT AND ORIENTED, UPON ENTERING AT START OF SHIFT WAS IN [employer] VERY PLEASANT WOMAN. DENIES PAIN AT THIS TIME. MEDICATED PER EMAR. ASSESSED, HAS SOME HEALED BILAT BRUISING TO UPPER EXT, PT REPORTS IT WAS FROM AEKG STICKER BEING RIPPED OFF OF HER AT ANOTHER FACILITY. NO FURTHER NEEDS EXPRESSED. HAD A SMALL RUN OF VTACH LATER IN THE SHIFT, PROVIDER AWARE, OREDERS TO FOLLOW. NEW SET OF VITALS TAKEN WNL. EKG AND LABS DRAWN. IV TO LAC PATENT. SAYS SHE FEELS OK, WAS HAVING SOME CHEST PAIN AT THE TIME BUT HAS RETURED TO NSR. CALL LIGHT WITHIN REACH.
[2023-10-12] VITALS (14 sets, daily range): BP systolic 103–137; BP diastolic 62–79; PULSE 68–91; TEMP 97.7–98.3
--- NOTE | 2023-10-12 01:00 | NUR ---
Report recieved from ZOEY Szymanski.
--- NOTE | 2023-10-12 06:16 | NUR ---
Recieved phone call from TELE stating she had a 10 beat run of V-tach @0531. Vital signs obtained. Patitent states she doesn't have any chest pain. Dr. Rich notified, stated thanks for letting him know and to keep keep an eye on her.
--- NOTE | 2023-10-12 06:18 | NUR ---
Patitent resting in bed. Denies any pain or needs at this time. Patient had a 9 beat run of V-tach at begining of shift, troponin WNL, EKG normal. 10 beat run of V-tach this morning, patient states she doesn't have any chest pain and hospitalist notified. Call light and personal items in reach. Bed in low position and bed alarm on.
--- NOTE | 2023-10-12 06:55 | NUR ---
PATIENT ASLEEP, RESTING IN BED. CALL LIGHT WITHIN REACH/RESPIRATIONS UNLABORED AND WNL.
[2023-10-12] MEDS ORDERED: Amiodarone 200 MG TAB PO SCH (13:04)
[2023-10-12 13:58] LABS: ALBUMIN 3.8 gm/dL (3.4-4.8); BILIRUBIN,TOTAL 0.4 mg/dL (0.2-1.2); TOTAL PROTEIN 7.5 gm/dL (6.2-8.1)
--- NOTE | 2023-10-12 14:03 | NUR ---
SHELLFISH MANAGER CALLED REGARDING NEW PO AMIO ORDER. PER SHELLFISH MANAGER NO NEED FOR NEW EKG FOR TODAY PRIOR TO INITATION.
[2023-10-12 14:22] LABS: BILIRUBIN,DIRECT 0.2 mg/dL (0.0-0.5)
--- NOTE | 2023-10-12 21:10 | NUR ---
Patient resting in bed. Patient tolerated shower well without oxygen. Denies any pain or needs at this time. Assessment complete. IV in left AC flushes easily with no complicaitons. Call light and personal items in reach. Bed in low position.
[2023-10-13] VITALS (16 sets, daily range): BP systolic 102–137; BP diastolic 38–87; PULSE 59–96; TEMP 95.7–100.2
--- NOTE | 2023-10-13 05:50 | NUR ---
Patient resting in bed. Denies any pain or needs at this time. No signs of pain or needs at this time. No changes over night. Call light and personal items in reach. Bed in low positon.
[2023-10-13 08:48] LABS: BASO % 0.3 % (0.0-2.0); EOS # 0.1 K/mm3 (0.0-0.7); EOS % 1.2 % (0.0-4.0); GRAN # 4.1 K/mm3 (1.4-6.5); GRAN % 56.4 % (42.2-75.2); HEMATOCRIT 37.6 % (37.0-47.0); HEMOGLOBIN 12.7 g/dl (12.5-16.0); LYMPH # 2.4 K/mm3 (1.2-3.4); LYMPH % 32.9 % (20.0-51.0); MEAN CELL VOLUME 94 fl (80.0-100.0); MEAN CORPUSCULAR HEMOGLOBIN 32 pg (27-31); MEAN CORPUSCULAR HGB CONC 34 g/dl (33.0-37.0); MEAN PLATELET VOLUME 9.3 fl (7.4-10.4); MONO # 0.6 K/mm3 (0.1-0.6); MONO % 8.8 % (1.7-9.3); PLATELET COUNT 238 K/mm3 (130-400); REDCELL DISTRIBUTION WIDTH-CV 12.7 % (11.5-14.5)
[2023-10-13 09:12] LABS: CALCIUM 9.3 mg/dL (8.4-10.2); CREATININE, serum 1.35 mg/dL (0.57-1.11); POTASSIUM 4.2 mmol/L (3.5-4.5)
--- NOTE | 2023-10-13 09:45 | NUR ---
Patient sleeping in bed, easily arousable. Alert and oriented x4, aware of NPO. Had her meds with some sips of water, revied with cardiology team. States some chest pain, feeling like pressure. Assessment completed, no further needs at this time. Call light within reach.
[2023-10-13] MEDS ORDERED: ULTRAM 50MG TAB50 MG PO (09:56)
[2023-10-13] MEDS ORDERED: XYZAL5 MG PO (09:59)
[2023-10-13] MEDS ORDERED: LIPITOR 80MG80 MG PO (09:59)
[2023-10-13] MEDS ORDERED: ZANAFLEX 4MG TAB4 MG PO (09:59)
[2023-10-13] MEDS ORDERED: IMDUR 30MG30 MG/TAB PO (10:00)
[2023-10-13] MEDS ORDERED: Vancomycin 1.5 GM,Special Dose/Pharmacy Prepared 1.5 GM in NS 250 ML IV SCH (10:15)
[2023-10-13] MEDS ORDERED: 1/2 NS 1,000 ML IV SCH ×2 (10:15→17:00)
--- NOTE | 2023-10-13 10:41 | NUR ---
Patient signed consents for interventions, fluids started per orders.
[2023-10-13 11:57] LABS: INR 1.1 (0.8-3.0); PROTHROMBIN TIME 12.2 SECONDS (9.7-12.8)
[2023-10-13 12:00] LABS: PARTIAL THROMBOPLASTIN TIME 29.6 SECONDS (26.0-37.0)
--- NOTE | 2023-10-13 14:52 | NUR ---
SEE MERGE FOR PROCEDURE DOCUMENTATION
[2023-10-13] MEDS ORDERED: Vancomycin 1.5 GM,Special Dose/Pharmacy Prepared 1.5 GM in NS 250 ML IV ONE (15:00)
[2023-10-13] MEDS ORDERED: Heparin 1,000 UNITS/ML 10 ML Multi-Dose VIAL IV SCH (15:33)
[2023-10-13] MEDS ORDERED: Nitroglycerin 100 MCG/ML (Cath Lab) 10 ML VIAL IA SCH (15:34)
[2023-10-13] MEDS ORDERED: NS 1,000 ML IV.SOLN. IR SCH (15:35)
[2023-10-13] MEDS ORDERED: Vancomycin 1 GM VIAL IR SCH (15:37)
[2023-10-13] MEDS ORDERED: Verapamil 2.5 MG/ML 2 ML VIAL IA SCH (15:38)
[2023-10-13] MEDS ORDERED: Topical Skin Adhesive 1 EACH (1 ML) TOP ONE (16:24)
[2023-10-13] MEDS ORDERED: fentaNYL 50 MCG/ML 2 ML VIAL IV SCH (16:32)
[2023-10-13] MEDS ORDERED: Midazolam 2 MG/2 ML VIAL IV SCH (16:33)
[2023-10-13] MEDS ORDERED: Iohexol 350 - 100 ML VIAL IV ONE (16:37)
--- NOTE | 2023-10-13 16:59 | NUR ---
Patient arrived after procedure, alert and oriented, VSS. Starting VS post op.
--- NOTE | 2023-10-13 17:00 | NUR ---
PATIENT NOTED TO HAVE IMPROVED NAUSEA AND DIAPHORESIS WITH IV ZOFRAN, REPORTS MILD LIGHTHEADEDNESS, DENIES CHEST PAIN. PATIENT TRANSPORTED VIA CART TO MEDICAL 358, VITAL SIGNS TAKEN ON ARRIVAL. HYPOTENSION NOTED, CUFF REPOSITIONED AND PLACED ON LEFT LEG. VSS. TRANSFER OF CARE GIVEN TO ZOEY WOOTEN.
--- NOTE | 2023-10-13 19:13 | NUR ---
Pt has been stable after procedure, difficult to get some tempt best number 96.7, warm blankets provided. Report given to night time nanny nurse. Student at the bedside. Radial band removed 11cc out, bandaid placed. Good pulses +2 BUE and BLE. Ice placed on ICD site.
--- NOTE | 2023-10-13 20:29 | NUR ---
CALL PLACED TO HOSPITALIST ALE. PATIENT BP 109/47 MAP-60 PULSE 63. PATIENT ASKING FOR XANAX AND HAS SCHEDULED COREG DUE. THIS NURSE CONCERNED FOR SOFT BP AND PULSSE. TORB TO GIVE XANAX AND HOLD COREG UNTIL RE EVALUATION OF BP AFTER XANAX ADMINISTERATION.
--- NOTE | 2023-10-13 21:00 | NUR ---
UPON SHIFT ASSESSMENT, KIRBY WAS AWAKE IN BED AND AXO X4. RIGHT RADIAL CATH SITE WAS CDI WITH COMPRESSION REMOVED. NO SIGNS OF HEMATOMA AND DISTAL PULSES GOOD. PATIENT C/O OF INCISION SITE PAIN 02/24. BP SOFT WITH LOW MAP 60-63. TELE IS NS AND OTHER VS WNL. KIRBY IS ASKING FOR XANAX R/T Hx ANXIETY. WILL CONSULT HOSPITALIST ABOUT LOW BP -107 SYSTOLIC AND REQUEST FOR XANAX
[2023-10-14] VITALS (12 sets, daily range): BP systolic 102–138; BP diastolic 53–77; PULSE 61–77; TEMP 98.2–98.7
--- NOTE | 2023-10-14 02:00 | NUR ---
PATIENT COMPLAINED OF THROAT PAIN/SORE THROAT VS 112/60 94% 2L 63 PULSE TEMP 97.9. TELE NS. RE-ENTERED PATIENT'S ROOM AND PATIENT STATED, " IT'S WIERD, PAIN IN MY THROAT IS GONE." NO FURTHER ACTION TAKEN.
--- NOTE | 2023-10-14 05:40 | NUR ---
PATIENT C/O OF SOA AND "LUNG PAIN". VS ARE WNL, TELE IS NS, LUNG SOUNDS CLEAR. WILL PASS CONCERN ON TO DAYSHIFT. PROTONIX GIVEN-POSSIBLY GERD RELATED PAIN.
--- NOTE | 2023-10-14 05:47 | NUR ---
PATIENT FEELS SOA-XANAX PRN REQUESTED R/T ANXIETY.
[2023-10-14 07:49] LABS: BASO % 0.3 % (0.0-2.0); EOS # 0.1 K/mm3 (0.0-0.7); EOS % 1.4 % (0.0-4.0); GRAN % 67.8 % (42.2-75.2); HEMOGLOBIN 11.5 g/dl (12.5-16.0); LYMPH % 22.2 % (20.0-51.0); MEAN CELL VOLUME 97 fl (80.0-100.0); MEAN CORPUSCULAR HEMOGLOBIN 32 pg (27-31); MEAN CORPUSCULAR HGB CONC 33 g/dl (33.0-37.0); MEAN PLATELET VOLUME 9.3 fl (7.4-10.4); MONO # 0.7 K/mm3 (0.1-0.6); MONO % 8.2 % (1.7-9.3); PLATELET COUNT 233 K/mm3 (130-400); REDCELL DISTRIBUTION WIDTH-CV 12.9 % (11.5-14.5)
[2023-10-14 07:51] LABS: HEMATOCRIT 34.8 % (37.0-47.0)
[2023-10-14 07:58] LABS: CALCIUM 8.9 mg/dL (8.4-10.2); CREATININE, serum 1.3 mg/dL (0.57-1.11); POTASSIUM 4.6 mmol/L (3.5-4.5)
[2023-10-14] MEDS ORDERED: PREDNISONE20 MG PO (08:37)
[2023-10-14] MEDS ORDERED: PRINIVIL20 MG PO (08:39)
[2023-10-14] MEDS ORDERED: LASIX 20MG TABL20 MG PO (08:39)
[2023-10-14] MEDS ORDERED: ASPIRIN 81M81 MG/TA2 PO (08:40)
[2023-10-14] MEDS ORDERED: PACERONE200 MG PO (09:02)
[2023-10-14] MEDS ORDERED: 1/2 NS 1,000 ML IV SCH (10:00)
--- NOTE | 2023-10-14 10:35 | NUR ---
Refer to Merge Hemodynamic report for procedural sedation/notes
--- NOTE | 2023-10-14 10:35 | NUR ---
shine worker notes patient can discharge home and is back on room air. Discharge Plan: Home
--- NOTE | 2023-10-14 11:23 | NUR ---
Pt back to Medical 358 - bedside handoff performed with ZOEY Ribera. Vitals initiated, stable and reviewed together. Call light in reach. Pt and RN denies questions or concerns
--- NOTE | 2023-10-14 13:51 | NUR ---
PATIENT COMPLAINED OF NAUSEA AND FEELING HOT. STATED SHE WANTED TO GO TO THE BATHROOM. NURSING ASSISTED TO THE BATHROOM. PATIENT HAD A BOWEL MOVEMENT AND THEN FELT LIGHT HEADED. BLOOD PRESSURE WAS 105/63. POSSIBLY A VASOVAGAL RESPONSE ON THE TOILET. PATIENT DID COMPLAIN OF CHEST PAIN AT SITE WHERE PACEMAKER ICD WAS PLACED. NOTIFIED CARDIOLOGY. PATIENT GOT 4MG OF ZOFRAN IV AND IS RESTING IN BED.
--- NOTE | 2023-10-14 15:05 | NUR ---
IV DISCONTINUED. TELEMETRY REMOVED. PATIENT RECEIVED DISCHARGE INSTRUCTIONS, ACKNOWLEDGED UNDERSTANDING OF FOLLOW UP APPOINTMENTS AND NEW MEDICATIONS. EXPLAINED TO PATIENT IMPORTANCE OF POST PACEMAKER CARE. UNDERSTANDS. PATIENT WAS TRANSPORTED VIA WHEELCHAIR. TO PATIENT ENTRACE FOR DISCHARGE WITH ORGANIZATIONAL CONSULTANT.
== END 2023-10-14 15:00 | disposition home or self-care (01) | DRG 275 ==
LOC: COL.ER 17:10 → MEDICAL 19:12
PROVIDERS: Nurse Practitioner Family; Nurse Practitioner Primary Care; Physician Assistant; ADMIT Internal Medicine
PROC: 0JH608Z Insertion of Defibrillator Generator into Chest Subcutaneous Tissue and Fascia, Open Approach (ICD-10-PCS; principal; 2023-10-13)
PROC: 02H63KZ Insertion of Defibrillator Lead into Right Atrium, Percutaneous Approach (ICD-10-PCS; 2023-10-13)
PROC: 4A023N7 Measurement of Cardiac Sampling and Pressure, Left Heart, Percutaneous Approach (ICD-10-PCS; 2023-10-13)
PROC: 02HK3KZ Insertion of Defibrillator Lead into Right Ventricle, Percutaneous Approach (ICD-10-PCS; 2023-10-13)
PROC: B2111ZZ Fluoroscopy of Multiple Coronary Arteries using Low Osmolar Contrast (ICD-10-PCS; 2023-10-13)
DX: I11.0 Hypertensive heart disease with heart failure (principal); I49.02 Ventricular flutter; I50.23 Acute on chronic systolic (congestive) heart failure; J18.9 Pneumonia, unspecified organism; J96.21 Acute and chronic respiratory failure with hypoxia; I47.10 Supraventricular tachycardia, unspecified; N17.9 Acute kidney failure, unspecified; K21.9 Gastro-esophageal reflux disease without esophagitis; F41.9 Anxiety disorder, unspecified; F32.A Depression, unspecified; E78.5 Hyperlipidemia, unspecified; J43.9 Emphysema, unspecified; Z20.822 Contact with and (suspected) exposure to COVID-19; I34.0 Nonrheumatic mitral (valve) insufficiency; I25.5 Ischemic cardiomyopathy; F15.10 Other stimulant abuse, uncomplicated; I25.10 Atherosclerotic heart disease of native coronary artery without angina pectoris; Z95.5 Presence of coronary angioplasty implant and graft; Z90.49 Acquired absence of other specified parts of digestive tract; Z88.1 Allergy status to other antibiotic agents; Z88.0 Allergy status to penicillin; Z91.048 Other nonmedicinal substance allergy status; Z99.81 Dependence on supplemental oxygen; Z79.82 Long term (current) use of aspirin; Z79.899 Other long term (current) drug therapy; Z79.02 Long term (current) use of antithrombotics/antiplatelets; Z87.891 Personal history of nicotine dependence
CPT/HCPCS: C1721; C1769; C1777; C1894; C1898; J0665-JZ; J1644; J1650; J1940; J1956; J2250; J2405; J2704; J3010; J3370; J7030; J7050; J7512; Q9967

== ENCOUNTER 2024-06-09 22:01 | Emergency (ER) | payer SELFPAY ==
[~2024-06-09] VITALS: Ht 172.7 cm; Wt 77.3 kg
[~2024-06-09 22:01] MED LIST changes: -Atorvastatin 40 MG TAB PO SCH; +IMDUR 30MG30 MG/TAB PO; +LIPITOR 80MG80 MG PO; +PACERONE200 MG PO; +PRINIVIL20 MG PO; +XYZAL5 MG PO
[2024-06-09 22:11] VITALS: TEMP 98
[2024-06-09] MEDS ORDERED: Albuterol/Ipratropium 3 MG-0.5 MG/3 ML Neb Soln IH SCH (23:45)
[2024-06-09 23:56] LABS: BASO % 0.8 % (0.0-2.0); EOS # 0.2 K/mm3 (0.0-0.7); EOS % 3.5 % (0.0-4.0); GRAN # 2.4 K/mm3 (1.4-6.5); HEMATOCRIT 41.1 % (37.0-47.0); HEMOGLOBIN 12.8 g/dl (12.5-16.0); LYMPH # 2.1 K/mm3 (1.2-3.4); LYMPH % 40.4 % (20.0-51.0); MEAN CELL VOLUME 101 fl (80.0-100.0); MEAN CORPUSCULAR HEMOGLOBIN 31 pg (27-31); MEAN CORPUSCULAR HGB CONC 31 g/dl (33.0-37.0); MEAN PLATELET VOLUME 9.2 fl (7.4-10.4); MONO # 0.4 K/mm3 (0.1-0.6); MONO % 8.3 % (1.7-9.3); PLATELET COUNT 209 K/mm3 (130-400); RED BLOOD COUNT 4.09 M/mm3 (4.10-5.30); REDCELL DISTRIBUTION WIDTH-CV 13.3 % (11.5-14.5)
[2024-06-10 00:03] LABS: INR 1.1 (0.8-3.0); PROTHROMBIN TIME 11.6 SECONDS (9.7-12.8)
[2024-06-10 00:05] LABS: PARTIAL THROMBOPLASTIN TIME 32.4 SECONDS (26.0-37.0)
[2024-06-10 00:10] LABS: BILIRUBIN,TOTAL 0.3 mg/dL (0.2-1.2); CALCIUM 9.4 mg/dL (8.4-10.2); CREATININE, serum 1.31 mg/dL (0.57-1.11); POTASSIUM 4.5 mEq/L (3.5-4.5); TOTAL PROTEIN 7.1 g/dl (6.2-8.1)
[2024-06-10 00:17] LABS: TROPONIN-I 0.027 ng/mL (0.00-0.033)
[2024-06-10] MEDS ORDERED: methylPREDNISolone Sod Succ 125 MG/2 ML VIAL IV ONE (00:45)
[2024-06-10] MEDS ORDERED: Furosemide 40 MG/4 ML VIAL IV ONE (00:45)
[2024-06-10] MEDS ORDERED: PREDNISONE20 MG PO (01:05)
[2024-06-10] MEDS ORDERED: Albuterol 90 MCG/PUFF 8 GM MDI IH ONE (01:15)
[2024-06-10 01:44] VITALS: BP 157/101; PULSE 77
== END 2024-06-10 01:44 | disposition home or self-care (01) ==
LOC: COL.ER 22:01
PROVIDERS: Emergency Medicine
DX: J44.1 Chronic obstructive pulmonary disease with (acute) exacerbation (principal); I50.9 Heart failure, unspecified
CPT/HCPCS: J1940; J2919